=== PATIENT | female | born 1975 | race Caucasian/White ===

== ENCOUNTER 2018-12-01 11:45 | Emergency (ER) | payer BC ==
[2018-12-01] MEDS ORDERED: NA CHLORIDE 0.9% 1,000 ML ONE ×2 (13:50→14:06)
[2018-12-01 14:08] LABS: Urine Bacteria <20 /HPF (<20); Urine Culture Reflex Order NOT NEEDED; Urine RBC <5 /HPF (NONE SEEN)
[2018-12-01 14:13] LABS: Absolute Lymphocytes (CBC) 2.8 K/uL (0.7-4.9); Absolute Monocytes 0.5 K/uL (0.1-1.3); Absolute Neutrophil 3.8 K/uL (1.8-8.0); Basophils % 0.7 % (0-1.3); Eosinophils % 1.7 % (0-4.4); Hematocrit 43.7 % (36.0-45.0); Lymphocytes % 37.9 % (15.3-44.8); MPV 8.3 fL (7.6-11.3); Monocytes % 7.5 % (3.3-12.3); RBC Red Blood Cell Count 4.73 M/uL (3.86-4.86)
[2018-12-01 14:19] LABS: BUN Blood Urea Nitrogen 14 mg/dL (7-18); Bicarbonate 26 mmol/L (21-32); Glucose Level 87 mg/dL (74-106); Potassium 4.2 mmol/L (3.5-5.1); Sodium Level 140 mmol/L (136-145); Troponin (Emerg Dept Use Only) < 0.02 ng/mL (0.0-0.045)
--- NOTE | 2018-12-01 15:09 | RAD REPORT ---
EXAM DESCRIPTION: RAD - Chest Single View - 12/01/2018 2:35 pm CLINICAL HISTORY: CHEST PAIN Chest pain. COMPARISON: No comparisons FINDINGS: Portable technique limits examination quality. The lungs are grossly clear. The heart is normal in size. No displaced fractures. IMPRESSION: No acute intrathoracic process suspected.
--- NOTE | 2018-12-01 15:37 | EKG ---
Test Date: 2018-12-01 Test Time: 13:33:21 Load Builder: ANAI MEASUREMENT RESULTS: Intervals: Rate: 59 GA: 126 QRSD: 92 QT: 436 QTc: 431 [place]: P: 35 GA: 126 QRS: 15 T: 15 INTERPRETIVE STATEMENTS: Sinus bradycardia Otherwise normal ECG Compared to ECG 10/12/2016 15:35:01 Sinus rhythm no longer present Electronically Signed On 12-01-18 15:37:34 CDT by Carlos Headley
--- NOTE | 2018-12-01 16:05 | EDPHYS ---
Physician Documentation [facility] Name: Darshana Haddad Age: 43 yrs Sex: Female : 1975 Arrival Date: 12/01/2018 Time: 11:47 Bed 28 Private MD: Lesley Caraballo ED Physician Alfredo Estrada HPI: 12/01 13:26 This 43 yrs old Female presents to ER via Ambulatory with complaints of rn Headache, Neck Problem. 13:26 The patient complains of pain to the occiput. The patient describes the headache as rn aching. Onset: The symptoms/episode began/occurred 4 day(s) ago. Severity of symptoms: At its worst the pain was moderate, in the emergency department the pain is unchanged. Headache History: The patient has had previous headaches and this one is similar to previous episodes. The symptoms are alleviated by nothing. the symptoms are aggravated by nothing. The patient has experienced similar episodes in the past. Reports headache for 4-5 days, assoc with neck pain, fatigue, paresthesias that travel from extremity to extremity, no focal weakness but + generalized weakness. Also feels chest pain and sob that is intermittent. No cough/abd pain/vomiting/diarrhea. Called pcp who told her to come to ER for evaluation. . 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 - Family history:: not pertinent. - Social history:: Smoking status: Patient/guardian denies using tobacco. - Ebola Screening: : No symptoms or risks identified at this time. - Hospitalizations: : No recent hospitalization is reported. ROS: 13:26 Constitutional: Negative for fever, chills, and weight loss, Eyes: Negative for injury, rn pain, redness, and discharge, Neck: Negative for injury, pain, and swelling, Cardiovascular: Negative for palpitations Respiratory: Negative for cough, wheezing, and pleuritic chest pain, Abdomen/GI: Negative for abdominal pain, nausea, vomiting, diarrhea, and constipation, Back: Negative for injury and pain, MS/Extremity: Negative for injury and deformity, Skin: Negative for injury, rash, and discoloration, Neuro: Negative for seizure Exam: 13:29 Constitutional: This is a well developed, well nourished patient who is awake, alert, rn and in no acute distress. Head/Face: Normocephalic, atraumatic. Eyes: Pupils equal round and reactive to light, extra-ocular motions intact. Lids and lashes normal. Conjunctiva and sclera are non-icteric and not injected. Cornea within normal limits. Periorbital areas with no swelling, redness, or edema. ENT: dry MM and lips Respiratory: No increased work of breathing, no retractions or nasal flaring. Abdomen/GI: soft, non-tender Skin: Warm, dry MS/ Extremity: Pulses equal, no cyanosis. Neurovascular intact. Full, normal range of motion. Equal circumference. 1+ pitting edema bilateral lower ext and feet Neuro: Awake and alert, GCS 15, oriented to person, place, time, and situation. Cranial nerves II-XII grossly intact. Motor strength 5/5 in all extremities. Sensory grossly intact. Vital Signs: 12:28 BP 136 / 82; Pulse 79; Resp 18; Temp 98.1(O); Pulse Ox 99% ; Weight 117.93 kg; Height 5 rb1 ft. 8 in. (172.72 cm); Pain 7/10; 13:25 BP 107 / 72; Pulse 70; Resp 16 S; Pulse Ox 100% on R/A; ca1 14:02 BP 101 / 62; Pulse 59; Resp 17 S; Pulse Ox 96% on R/A; ca1 15:00 BP 103 / 65; Pulse 60; Resp 17 S; Temp 98(O); Pulse Ox 96% on R/A; ca1 15:43 BP 100 / 64; Pulse 59; Resp 17 S; Pulse Ox 99% on R/A; ca1 15:57 BP 103 / 59; Pulse 62; Resp 17 S; Temp 98.1; Pulse Ox 99% on R/A; ca1 12:28 Body Mass Index 39.53 (117.93 kg, 172.72 cm) rb1 Lesage Coma Score: 16:00 Eye Response: spontaneous(4). Verbal Response: oriented(5). Motor Response: obeys rn commands(6). Total: 15. MDM: 13:14 Patient medically screened. rn 16:00 Differential diagnosis: hypertensive headache, migraine, tension headache, vasomotor rn headache, MOno, flu, viral syndrome. Data reviewed: vital signs, nurses notes, lab test result(s), radiologic studies, plain films. Counseling: I had a detailed discussion with the patient and/or guardian regarding: the historical points, exam findings, and any diagnostic results supporting the discharge/admit diagnosis, lab results, radiology results, the need for outpatient follow up, to return to the emergency department if symptoms worsen or persist or if there are any questions or concerns that arise at home. Special discussion: I discussed with the patient/guardian in detail that at this point there is no indication for admission to the hospital. It is understood, however, that if the symptoms persist or worsen the patient needs to return immediately for re-evaluation. Based on the history and exam findings, there is no indication for further emergent testing or inpatient evaluation. I discussed with the patient/guardian the need to see the primary care provider for further evaluation of the symptoms. ED course: NO clear etiology found for constellation of symptoms. Will dc home with pcp f/u. . 12/01 13:26 Order name: CBC with Diff; Complete Time: 14:44 rn 12/01 13:26 Order name: Basic Metabolic Panel; Complete Time: 14:44 rn 12/01 13:26 Order name: Urine Microscopic Only; Complete Time: 14:44 rn 12/01 13:26 Order name: Troponin (emerg Dept Use Only); Complete Time: 14:44 rn 12/01 13:26 Order name: Flu; Complete Time: 14:44 rn 12/01 13:26 Order name: [place] Screen Profile; Complete Time: 16:00 rn 12/01 13:26 Order name: IV Start; Complete Time: 13:55 rn 12/01 13:26 Order name: Urine Test (obtain specimen); Complete Time: 13:30 rn 12/01 13:26 Order name: EKG; Complete Time: 13:26 rn 12/01 13:26 Order name: XRAY Chest (1 view); Complete Time: 16:00 rn 12/01 13:41 Order name: Urine Dipstick--Ancillary (enter results) bd 12/01 13:41 Order name: Urine --Ancillary (enter results) bd 12/01 13:26 Order name: Urine Dipstick-Ancillary (obtain specimen); Complete Time: 13:30 rn 12/01 13:26 Order name: EKG - Nurse/Tech; Complete Time: 13:39 rn Administered Medications: 13:50 Drug: NS 0.9% 1000 ml Route: IV; Rate: 1000 ml; Site: left antecubital; ca1 14:48 Follow up: Response: No adverse reaction; IV Status: Completed infusion ca1 Disposition: 12/01/18 16:04 Discharged to Home. Impression: Headache, Chest pain, unspecified, Paresthesia of skin. - Condition is Stable. - Discharge Instructions: Nonspecific Chest Pain, General Headache Without Cause, Paresthesia. - Medication Reconciliation Form, Thank You Letter, Antibiotic Education, Prescription Opioid Use form. - Follow up: Private Physician; When: As needed; Reason: Recheck today's complaints, Re-evaluation by your physician. - Problem is new. - Symptoms have improved. Signatures: Dispatcher [employer] EDMS Alfredo Estrada MD MD rn Barber, Rebecca, RN RN rb1 Elly Logan RN RN ca1 Corrections: (The following items were deleted from the chart) 16:16 16:04 12/01/2018 16:04 Discharged to Home. Impression: Headache; Chest pain, ca1 unspecified; Paresthesia of skin. Condition is Stable. Forms are Medication Reconciliation Form, Thank You Letter, Antibiotic Education, Prescription Opioid Use. Follow up: Private Physician; When: As needed; Reason: Recheck today's complaints, Re-evaluation by your physician. Problem is new. Symptoms have improved. rn
--- NOTE | 2018-12-01 16:05 | ER ---
Nurse's Notes [facility] Name: Darshana Haddad Age: 43 yrs Sex: Female : 1975 Arrival Date: 12/01/2018 Time: 11:47 Bed 28 Private MD: Lesley Caraballo Diagnosis: Headache;Chest pain, unspecified;Paresthesia of skin Presentation: 12/01 12:23 Presenting complaint: Patient states: fatigue x couple weeks, headache x couple days, rb1 pins and needles in hands and feet intermittent, SOB today, neck pain 7/10. Denies fever, NVD. Transition of care: patient was not received from another setting of care. Onset of symptoms was November 2018. Risk Assessment: Do you want to hurt yourself or someone else? Patient reports no desire to harm self or others. 12:23 Method Of Arrival: Ambulatory rb1 12:23 Acuity: ASIM 3 rb1 13:25 Initial Sepsis Screen: Does the patient meet any 2 criteria? No. Patient's initial ca1 sepsis screen is negative. Does the patient have a suspected source of infection? No. Patient's initial sepsis screen is negative. 13:25 Care prior to arrival: None. ca1 Triage Assessment: 12:26 Headache History: The patient has had previous headaches and this one is different than rb1 previous episodes. General: Appears in no apparent distress. uncomfortable, Behavior is calm, cooperative, Denies fever. Neuro: Level of Consciousness is awake, alert, obeys commands, Oriented to person, place, time, situation. Cardiovascular: Capillary refill < 3 seconds is brisk in bilateral fingers. Respiratory: Airway is patent Respiratory effort is even, unlabored, Respiratory pattern is regular, symmetrical. Derm: Skin is dry, Skin is normal, Skin temperature is warm. Musculoskeletal: Swelling present in right leg and left leg per pt. report. 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 - Family history:: not pertinent. - Social history:: Smoking status: Patient/guardian denies using tobacco. - Ebola Screening: : No symptoms or risks identified at this time. - Hospitalizations: : No recent hospitalization is reported. Screenin:25 Abuse screen: Denies threats or abuse. Denies injuries from another. Nutritional ca1 screening: No deficits noted. Tuberculosis screening: No symptoms or risk factors identified. Fall Risk None identified. Assessment: 13:25 General: Appears in no apparent distress. comfortable, Behavior is calm, cooperative, ca1 appropriate for age. Pain: Complains of pain in face and scalp Pain currently is 7 out of 10 on a pain scale. Pain began 2-3 days ago. Is continuous. Neuro: Level of Consciousness is awake, alert, obeys commands, Oriented to person, place, time, situation. Cardiovascular: Heart tones S1 S2 present Capillary refill < 3 seconds Patient's skin is warm and dry. Respiratory: Reports shortness of breath on exertion Airway is patent Respiratory effort is even, unlabored, Respiratory pattern is regular, symmetrical, Breath sounds are clear bilaterally. GI: Abdomen is round non-distended, Bowel sounds present X 4 quads. Abd is soft and non tender X 4 quads. : No deficits noted. No signs and/or symptoms were reported regarding the genitourinary system. EENT: No deficits noted. No signs and/or symptoms were reported regarding the EENT system. Derm: Skin is intact, is healthy with good turgor, Skin is pink, warm \T\ dry. Musculoskeletal: Circulation, motion, and sensation intact. Capillary refill < 3 seconds, Range of motion: intact in all extremities, Swelling present in right foot and left foot. 14:34 Reassessment: Patient appears in no apparent distress at this time. Eyes closed. Equal ca1 and unlabored breathing. Skin pink, warm and dry. 15:14 Reassessment: Patient appears in no apparent distress at this time. Patient and/or ca1 family updated on plan of care and expected duration. Pain level reassessed. Patient is alert, oriented x 3, equal unlabored respirations, skin warm/dry/pink. 15:57 Reassessment: Patient appears in no apparent distress at this time. Patient is alert, ca1 oriented x 3, equal unlabored respirations, skin warm/dry/pink. Vital Signs: 12:28 BP 136 / 82; Pulse 79; Resp 18; Temp 98.1(O); Pulse Ox 99% ; Weight 117.93 kg; Height 5 rb1 ft. 8 in. (172.72 cm); Pain 7/10; 13:25 BP 107 / 72; Pulse 70; Resp 16 S; Pulse Ox 100% on R/A; ca1 14:02 BP 101 / 62; Pulse 59; Resp 17 S; Pulse Ox 96% on R/A; ca1 15:00 BP 103 / 65; Pulse 60; Resp 17 S; Temp 98(O); Pulse Ox 96% on R/A; ca1 15:43 BP 100 / 64; Pulse 59; Resp 17 S; Pulse Ox 99% on R/A; ca1 15:57 BP 103 / 59; Pulse 62; Resp 17 S; Temp 98.1; Pulse Ox 99% on R/A; ca1 12:28 Body Mass Index 39.53 (117.93 kg, 172.72 cm) rb1 Melva Coma Score: 16:00 Eye Response: spontaneous(4). Verbal Response: oriented(5). Motor Response: obeys rn commands(6). Total: 15. ED Course: 11:47 Patient arrived in ED. mr 11:47 Lesley Caraballo MD is Private Physician. mr 12:25 Triage completed. rb1 12:28 Arm band placed on right wrist. rb1 13:14 Alfredo Estrada MD is Attending Physician. rn 13:22 Elly Logan RN is Primary Nurse. ca1 13:25 Patient has correct armband on for positive identification. Placed in gown. Bed in low ca1 position. Call light in reach. Side rails up X 1. Pulse ox on. NIBP on. Warm blanket given. 13:33 EKG done, by medical technician. reviewed by Alfredo Estrada MD. at1 13:47 Inserted saline lock: 20 gauge in left antecubital area, using aseptic technique. Blood ca1 collected. 14:35 XRAY Chest (1 view) In Process Unspecified. EDMS 16:10 No provider procedures requiring assistance completed. IV discontinued, intact, ca1 bleeding controlled, No redness/swelling at site. Pressure dressing applied. Administered Medications: 13:50 Drug: NS 0.9% 1000 ml Route: IV; Rate: 1000 ml; Site: left antecubital; ca1 14:48 Follow up: Response: No adverse reaction; IV Status: Completed infusion ca1 Outcome: 16:04 Discharge ordered by . rn 16:10 Discharged to home ambulatory, with significant other. ca1 16:10 Condition: stable 16:10 Discharge instructions given to patient, Instructed on discharge instructions, follow up and referral plans. Demonstrated understanding of instructions, follow-up care. 16:16 Patient left the ED. ca1 Signatures: Dispatcher [employer] NICOLÁSMichelle MiddletonAlfredo MD MD rn Elma Harding, burglar alarm mechanic EKG Tat1 Brenda Ng RN RN rb1 Elly Logan RN RN ca1 Corrections: (The following items were deleted from the chart) 13:04 12:28 BP 136 / ???; Pulse 79bpm; Resp 18bpm; Pulse Ox 99%; Temp 98.1F Oral; 117.93 kg; rb1 Height 5 ft. 8 in.; BMI: 39.5; Pain 7/10; rb1
[2018-12-01 16:31] LABS: Urine Blood 2+ (NEG); Urine Glucose NEGATIVE (NEG); Urine Protein NEGATIVE (NEG); Urine pH 5.5 (5.0-7.0)
== END 2018-12-01 16:16 | disposition home or self-care (01) ==
LOC: ER 11:45
DX: R51 Headache (principal); R07.9 Chest pain, unspecified; R20.2 Paresthesia of skin
CPT/HCPCS: 36415; 71045; 80048; 81003; 81015; 81025; 84484; 85025; 86308; 87804; 93005; 96360; 99284; J7030

== ENCOUNTER 2019-10-19 10:49 | Emergency (ER) | payer BC ==
[2019-10-19] MEDS ORDERED: METOCLOPRAMIDE 10 MG/2mL INJ ONE (11:24)
[2019-10-19] MEDS ORDERED: KETOROLAC 30 MG/ML INJ ONE (11:25)
[2019-10-19] MEDS ORDERED: NA CHLORIDE 0.9% 1,000 ML ONE (11:25)
[2019-10-19] MEDS ORDERED: DIPHENHYDRAMINE 50 MG/ML VIAL ONE (11:25)
[2019-10-19 12:51] LABS: Urine Blood 2+ (NEG); Urine Glucose NEGATIVE (NEG); Urine Protein NEGATIVE (NEG); Urine Specific Gravity 1.025 (1.005-1.030); Urine pH 5.5 (5.0-7.0)
--- NOTE | 2019-10-19 13:25 | RAD REPORT ---
EXAM DESCRIPTION: CT - Head Brain Wo Cont - 10/19/2019 1:12 pm CLINICAL HISTORY: HEADACHE Headache and drowsiness COMPARISON: No comparisons TECHNIQUE: All CT scans are performed using dose optimization technique as appropriate and may inclu de automated exposure control or mA/KV adjustment according to patient size. FINDINGS: No intracranial hemorrhage, hydrocephalus or extra-axial fluid collection.14 mm CSF densit y collection in the left middle cranial fossa may represent a benign arachnoid cyst.No areas of brain edema or evidence of midline shift. The paranasal sinuses and mastoids are clear. The calvarium is intact. IMPRESSION: No acute intracranial abnormality.
[2019-10-19] MEDS ORDERED: MORPHINE 4 MG/ML SYR ONE (13:59)
[2019-10-19] MEDS ORDERED: ONDANSETRON 4 MG/2 ML VIAL ONE (13:59)
--- NOTE | 2019-10-19 14:21 | ER ---
Nurse's Notes [facility] Name: Darshana Haddad Age: 44 yrs Sex: Female : 1975 Arrival Date: 10/19/2019 Time: 10:52 Bed 15 Private MD: Lesley Caraballo Diagnosis: Headache Presentation: 10/18 10:54 Chief complaint: Patient states: Tried to make a doctor appointment for a TURK x 1 week, jl7 hx of migraines, took sumatriptan this weekend on Saturday and it didn't help, reported mild subjective fever and Dr. Caraballo would not let her come in the office. Rashmi called her in a migraine medication and told her to take that and call her after she's sure she doesn't have a fever. Pt just picked up the called in medication and states her mom told her to come to the ER to get checked out. Denies N/V, denies shortness of breath, denies cough. Coronavirus screen: Patient denies fever greater than 100.4F, cough, shortness of breath, or difficulty breathing. Proceed with normal triage process. Ebola Screen: No symptoms or risks identified at this time. Initial Sepsis Screen: Does the patient meet any 2 criteria? No. Patient's initial sepsis screen is negative. Does the patient have a suspected source of infection? No. Patient's initial sepsis screen is negative. Risk Assessment: Do you want to hurt yourself or someone else? Patient reports no desire to harm self or others. Onset of symptoms was October 12, 2019. Care prior to arrival: None. 10:54 Method Of Arrival: Ambulatory [facility] 10:54 Acuity: ASIM 4 jl7 Triage Assessment: 11:03 Headache History: The patient has had previous headaches and this one is different than jl7 previous episodes, and this one is less severe than previous episodes. General: Appears in no apparent distress. uncomfortable, Behavior is calm, cooperative, appropriate for age. Pain: Complains of pain in TURK Pain currently is 7 out of 10 on a pain scale. Pain began x1 week Is continuous, Also complains of no other associated symptoms. Neuro: Level of Consciousness is awake, alert, obeys commands, Oriented to person, place, time, situation. 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 - Social history:: Smoking status: Patient reports the use of cigarette tobacco products, smokes one pack cigarettes per day. Patient/guardian denies using alcohol, street drugs, The patient lives with family. - Family history:: not pertinent. Screenin:00 Abuse screen: Denies threats or abuse. Denies injuries from another. Nutritional bp screening: No deficits noted. Tuberculosis screening: No symptoms or risk factors identified. Fall Risk None identified. Assessment: 11:00 General: SEE TRIAGE NOTE. Pain: Complains of pain in head. bp 11:31 Reassessment: IVF INFUSING, CT PENDING. PT STATING SOME RELIEF OF S/S. bp 13:07 Reassessment: PT TO CT. NO ACUTE S/S. bp 14:05 Reassessment: PT SLEEPING AFTER MEDICATION. NO ACUTE S/S NOTED. bp 14:39 Reassessment: PT D/C HOME AMBULATORY WITH FAMILY, DX WITH MIGRAINE. bp Vital Signs: 10:54 BP 137 / 91; Pulse 75; Resp 17 S; Temp 98.7(O); Pulse Ox 99% on R/A; Weight 113.4 kg 7 (R); Height 5 ft. 7 in. (170.18 cm) (R); Pain 7/10; 11:31 BP 128 / 87; Pulse 63; Resp 16; Pulse Ox 99% ; bp 13:07 BP 117 / 80; Pulse 52; Resp 16; Pulse Ox 99% ; bp 14:05 BP 95 / 58; Pulse 52; Resp 16; Pulse Ox 100% ; bp 14:39 BP 101 / 64; Pulse 56; Resp 17; Temp 98; Pulse Ox 100% ; bp 10:54 Body Mass Index 39.16 (113.40 kg, 170.18 cm) [facility] ED Course: 10:52 Patient arrived in ED. ag5 10:52 Lesley Caraballo MD is Private Physician. ag5 10:54 Marlon Neff MD is Attending Physician. ma2 11:00 Patient has correct armband on for positive identification. Bed in low position. Call bp light in reach. Side rails up X2. 11:01 Triage completed. jl7 11:03 Arm band placed on right wrist. jl7 11:11 Alessio Higgins, RN is Primary Nurse. bp 11:15 Inserted saline lock: 20 gauge in right wrist, using aseptic technique. bp 13:13 CT Head Brain wo Cont In Process Unspecified. EDMS 14:20 Jeff Ennis MD is Referral Physician. ma2 14:39 No provider procedures requiring assistance completed. IV discontinued, intact, bp bleeding controlled, No redness/swelling at site. Pressure dressing applied. Administered Medications: 11:20 Drug: NS 0.9% 1000 ml Route: IV; Rate: 1 bolus; Site: right wrist; bp 14:41 Follow up: IV Status: Completed infusion; IV Intake: 1000ml bp 11:20 Drug: Benadryl 25 mg Route: IVP; Site: right wrist; bp 13:49 Follow up: Response: No adverse reaction bp 11:20 Drug: Reglan 20 mg Route: IVP; Site: right wrist; bp 13:49 Follow up: Response: No adverse reaction bp 11:20 Drug: TORadol 30 mg Route: IVP; Site: right wrist; bp 13:49 Follow up: Response: No adverse reaction bp 13:50 Drug: morphine 4 mg Route: IVP; Site: right forearm; bp 14:41 Follow up: Response: Pain is decreased bp 13:50 Drug: Zofran (Ondansetron) 4 mg Route: IVP; Site: right forearm; bp 14:41 Follow up: Response: Nausea is decreased bp Intake: 14:41 IV: 1000ml; Total: 1000ml. bp Outcome: 14:20 Discharge ordered by . ma2 14:39 Discharged to home ambulatory, with family. bp 14:39 Condition: stable 14:39 Discharge instructions given to patient, Instructed on discharge instructions, follow up and referral plans. medication usage, Demonstrated understanding of instructions, follow-up care, medications, Prescriptions given X 1. 14:42 Patient left the ED. bp Signatures: Dispatcher [employer] EDMS Xochitl Eason RN RN jl7 Peltier, Brian, RN RN bp Alzahri, Mohammad, MD MD ma2 Dory, Ajare ag5
--- NOTE | 2019-10-19 14:22 | EDPHYS ---
Physician Documentation [facility] Name: Darshana Haddad Age: 44 yrs Sex: Female : 1975 Arrival Date: 10/19/2019 Time: 10:52 Bed 15 Private MD: Lesley Caraballo ED Physician Marlon Neff HPI: 10/18 13:12 This 44 yrs old Female presents to ER via Ambulatory with complaints of ma2 Headache, Fever. 13:12 The patient complains of pain to the forehead. The patient describes the headache as ma2 constant. Onset: The symptoms/episode began/occurred suddenly, 2 day(s) ago. Onset: The symptoms/episode began/occurred suddenly, gradually, 2 day(s) ago. Associated signs and symptoms: Pertinent negatives: dizziness, fever, neck stiffness, paresthesias, vision loss, vomiting. Severity of symptoms: At its worst the pain was mild, in the emergency department the pain is unchanged. The patient has not experienced similar symptoms in the past. [employer]: 11:03 LMP 09/20/2019 jl7 Historical: - Allergies: 11:03 No Known Allergies; jl7 - Home Meds: 11:03 sumatriptan oral oral [Active]; jl7 - PMHx: 11:03 varicose veins; Migraines; jl7 - PSHx: 11:03 Cholecystectomy; varicose veins removed; jl7 - Immunization history:: Adult Immunizations not up to date. - Social history:: Smoking status: Patient reports the use of cigarette tobacco products, smokes one pack cigarettes per day. Patient/guardian denies using alcohol, street drugs, The patient lives with family. - Family history:: not pertinent. ROS: 13:12 Constitutional: Negative for fever, chills, and weight loss. ma2 13:12 All other systems are negative. Exam: 13:12 Constitutional: This is a well developed, well nourished patient who is awake, alert, ma2 and in no acute distress. Head/Face: Normocephalic, atraumatic. Eyes: Pupils equal round and reactive to light, extra-ocular motions intact. Lids and lashes normal. Conjunctiva and sclera are non-icteric and not injected. Cornea within normal limits. Periorbital areas with no swelling, redness, or edema. ENT: Nares patent. No nasal discharge, no septal abnormalities noted. Tympanic membranes are normal and external auditory canals are clear. Oropharynx with no redness, swelling, or masses, exudates, or evidence of obstruction, uvula midline. Mucous membranes moist. Neck: Trachea midline, no thyromegaly or masses palpated, and no cervical lymphadenopathy. Supple, full range of motion without nuchal rigidity, or vertebral point tenderness. No Meningismus. Chest/axilla: Normal chest wall appearance and motion. Nontender with no deformity. No lesions are appreciated. Cardiovascular: Regular rate and rhythm with a normal S1 and S2. No gallops, murmurs, or rubs. Normal PMI, no JVD. No pulse deficits. Respiratory: Lungs have equal breath sounds bilaterally, clear to auscultation and percussion. No rales, rhonchi or wheezes noted. No increased work of breathing, no retractions or nasal flaring. Abdomen/GI: Soft, non-tender, with normal bowel sounds. No distension or tympany. No guarding or rebound. No evidence of tenderness throughout. MS/ Extremity: Pulses equal, no cyanosis. Neurovascular intact. Full, normal range of motion. Neuro: Awake and alert, GCS 15, oriented to person, place, time, and situation. Cranial nerves II-XII grossly intact. Motor strength 5/5 in all extremities. Sensory grossly intact. Cerebellar exam normal. Normal gait. Vital Signs: 10:54 BP 137 / 91; Pulse 75; Resp 17 S; Temp 98.7(O); Pulse Ox 99% on R/A; Weight 113.[address] [facility] (R); Height 5 ft. 7 in. (170.18 cm) (R); Pain 7/10; 11:31 BP 128 / 87; Pulse 63; Resp 16; Pulse Ox 99% ; bp 13:07 BP 117 / 80; Pulse 52; Resp 16; Pulse Ox 99% ; bp 14:05 BP 95 / 58; Pulse 52; Resp 16; Pulse Ox 100% ; bp 14:39 BP 101 / 64; Pulse 56; Resp 17; Temp 98; Pulse Ox 100% ; bp 10:54 Body Mass Index 39.16 (113.40 kg, 170.18 cm) [facility] MDM: 10:54 Patient medically screened. ma2 13:12 Differential diagnosis: hypoglycemia, hyponatremia, tension headache. Data reviewed: ma2 vital signs, nurses notes. Counseling: I had a detailed discussion with the patient and/or guardian regarding: the historical points, exam findings, and any diagnostic results supporting the discharge/admit diagnosis, the presence of at least one elevated blood pressure reading (>120/80) during this emergency department visit, the need for outpatient follow up. Response to treatment: the patient's symptoms have markedly improved after treatment. 10/18 11:50 Order name: Urine Dipstick--Ancillary (enter results); Complete Time: 13:12 bd 10/18 11:50 Order name: Urine --Ancillary (enter results); Complete Time: 13:12 bd 10/18 11:13 Order name: CT Head Brain wo Cont; Complete Time: 13:33 ma2 10/18 11:13 Order name: Urine Dipstick-Ancillary (obtain specimen); Complete Time: 11:21 ma2 Administered Medications: 11:20 Drug: NS 0.9% 1000 ml Route: IV; Rate: 1 bolus; Site: right wrist; bp 14:41 Follow up: IV Status: Completed infusion; IV Intake: 1000ml bp 11:20 Drug: Benadryl 25 mg Route: IVP; Site: right wrist; bp 13:49 Follow up: Response: No adverse reaction bp 11:20 Drug: Reglan 20 mg Route: IVP; Site: right wrist; bp 13:49 Follow up: Response: No adverse reaction bp 11:20 Drug: TORadol 30 mg Route: IVP; Site: right wrist; bp 13:49 Follow up: Response: No adverse reaction bp 13:50 Drug: morphine 4 mg Route: IVP; Site: right forearm; bp 14:41 Follow up: Response: Pain is decreased bp 13:50 Drug: Zofran (Ondansetron) 4 mg Route: IVP; Site: right forearm; bp 14:41 Follow up: Response: Nausea is decreased bp Disposition: 10/19/19 14:20 Discharged to Home. Impression: Headache. - Condition is Stable. - Discharge Instructions: Migraine Headache. - Prescriptions for Reglan 10 mg Oral Tablet - take 1 tablet by ORAL route every 6 hours take 30 minutes before meals and at bedtime; 20 tablet. - Work release form, Medication Reconciliation Form, Thank You Letter, Antibiotic Education, Prescription Opioid Use form. - Follow up: Jeff Ennis; When: Tomorrow; Reason: Continuance of care. Signatures: Dispatcher [employer] Xochitl Baptiste RN RN jl7 Alessio Higgins RN RN bp Marlon Neff MD MD ma2 Corrections: (The following items were deleted from the chart) 14:42 14:20 10/19/2019 14:20 Discharged to Home. Impression: Headache. Condition is Stable. bp Prescriptions for Reglan 10 mg Oral Tablet - take 1 tablet by ORAL route every 6 hours take 30 minutes before meals and at bedtime; 20 tablet. and Forms are Medication Reconciliation Form, Thank You Letter, Antibiotic Education, Prescription Opioid Use. Follow up: Jeff Ennis; When: Tomorrow; Reason: Continuance of care. ma2
[2019-10-19 15:35] VITALS: O2SAT 100
[2019-10-19 15:37] VITALS: BP 101/64; TEMP 98
== END 2019-10-19 14:42 | disposition home or self-care (01) ==
LOC: ER 10:49
DX: R51 Headache (principal); F17.210 Nicotine dependence, cigarettes, uncomplicated
CPT/HCPCS: 96361; 81025; 81003; 70450; 96375; 96374; 99284; J2765; J1200; J7030; J2405

== ENCOUNTER 2023-03-22 08:13 | Emergency (ER) | payer BC ==
--- OUTSIDE RECORDS SUMMARY | 2023-03-22 08:17 | XMS REPORT | Continuity of Care Document ---
:1975 Author Organization [facility] t Address [address] [facility] [address] [place] [id number] Care Team Providers Name Role Phone Moy Wren Attending Clinician Unavailable Alena Merida Attending Clinician Unavailable JOSE JUAN Attending Clinician Unavailable LAB90 Attending Clinician Unavailable Physician, No Primary or Family Admitting Clinician Unavaila ble Payers Payer Name Policy Type Policy Number Effective Date Expiration Date S freddy BCBS 2 [id number] 2022 00:00:00 Blue Cross 6 [id number] 2015 Common Spiri t Blue Shield of 00:00:00 - [facility] Problems Condition Condition Condition Status Onset Resolution Last Treating Co mments Source Name Details Category Date Date Treatment Clinician Date Well adult Well adult Disease Active K elsey exam exam - Seybold 00:00: - 00 Externa l Vitamin D Vitamin D Disease Active Girish sey deficiency deficiency 9- Se ybold 00:00: - 00 Externa l Class 3 Class 3 Disease Active Natalya severe severe 9-20 Seybold obesity obesity 00:00: - due to due to 00 Externa excess excess l calories calories without without serious serious comorbidit comorbidit y with y with body mass body mass index index (BMI) of (BMI) of 50.0 to 50.0 to 59.9 in 59.9 in adult adult Hirsutism Hirsutism Disease Active Girish sey - Seybold 00:00: - 00 Externa l Mixed Mixed Disease Active Natalya hyperlipid hyperlipid 02-06 Se ybold emia emia 00:00: - 00 Externa l PCOS PCOS Disease Active Natalya (polycysti (polycysti 02-06 Se ybold c ovarian c ovarian 00:00: - syndrome) syndrome) 00 Exte rna l Prediabete Prediabete Disease Active K elsey s s 02-06 Seybold 00:00: - 00 Externa l Gastro-eso Gastro-eso Problem Active C ommon phageal phageal Spirit reflux reflux - [facility] disease disease [facility] FH: Family Problem Active Common Diabetes history of Spir it mellitus diabetes - [facility] mellitus [facility] [id number] Hyperglyce Problem Active Com mon bro Spirit [facility] Edema Edema Problem Active Common [facility] [id number] Nonintract Problem Active Com mon able Spirit headache, - [facility] unspecifie [facility] chronicity Medica l [facility], Center unspecifie d headache type [id number] Body mass Problem Active Com mon index Spirit (BMI) of - CHI 45.0-49.9 St in adult [facility] [id number] Hyperlipid Problem Active Com mon emia, Spirit unspecifie - CHI d St hyperlipid [facility] emia [facility] [id number] Rash and Problem Active Comm on nonspecifi Spirit c skin - [facility] eruption [facility] [id number] Itching Problem Active Commo n [facility] [id number] Morbid Problem Active Common obesity [facility] [id number] Throat Problem Active Common symptom [facility] [id number] Peripheral Problem Active Co mmon edema [facility] [id number] Bilateral Problem Active Comm on hearing Spirit loss, - [facility] unspecifie [facility] hearing [facility] loss [facility] [id number] Elevated Problem Active Comm on testostero Spirit ne level - [facility] in female [facility] [id number] Chest Problem Active Common pressure Spirit - [facility] [id number] Shortness Problem Active Com mon of breath Spirit - [facility] Nonintract Nonintract Problem Active C ommon able able Spirit headache, headache, - CH I unspecifie unspecifie [facility] chronicity chronicity Me dical pattern, pattern, Center unspecifie unspecifie d headache d headache type type Allergies, Adverse Reactions, Alerts Allergy Allergy Status Severity Reaction(s) Onset Inactive Treating Comm ents Source Name Type Date Date Clinician No Known DA Active U [facility]ie -12 [place] [facility] 00:00: [facility] No Known DA Active U [facility] Allergie - [place] [facility] 00:: [facility] No Known DA Active U 2019- [facility] Drug 2-10 [place] Allergie 00:00: d [facility] No Known DA Active U 2019- [facility] Drug 2-10 [place] Allergie 00:00: [facility] No Known DA Active U 2004-0 [facility] Contrast 8-26 [place] Allergie 00:00: [facility] No Known DA Active U 2004-0 [facility] Drug 8-26 [place] Allergie 00:00: d [facility] No Known DA Active U 2004-0 [facility] Food 8-26 [place] Allergie 00:00: d [facility] No Known DA Active U 2005-0 [facility] Other 8-26 [place] Allergie 00:00: d [facility] Social History Social Habit Start Date Stop Date Quantity Comments Source History of Tobacco Current Smoker Co mmon Spirit - Use [facility] History SDOH Natalya valdes - Alcohol Frequency Externa l History SDOH Natalya valdes - Alcohol Std 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 History SDOH Natalya valdes - Alcohol Binge External Alcohol intake 2022-08-08 2022-08-08 Current drinker Kaitlin Cho - 00:00:00 00:00:00 of alcohol External (finding) Education 2022-04-10 2022-04-10 16 Natalya Cho - 00:00:00 00:00:00 External Tobacco use and 2022-02-06 2022-02-06 Smokeless tobacco Ke lsey Seybold - exposure 00:00:00 00:00:00 non-user External Alcohol Comment 2022-02-06 2022-02-06 rarely Natalya see - 00:00:00 00:00:00 External Cigarettes smoked 2022-02-06 2022-02-06 Natalya Cho - current (pack per 00:00:00 00:00:00 Externa l day) - Reported Cigarette 2022-02-06 2022-02-06 Natalya Cho - pack-years 00:00:00 00:00:00 External Sex Ass[birth year] At [birth year] Natalya see - 00:00:00 00:00:00 External Smoking Status Start Date Stop Date Source Smokes tobacco daily 2022-02-06 00:00:00 Natalyasergio Cho - External Medications Ordered Filled Start Stop Current Ordering Indication Dosage Frequency Signature Comments Components Source Medication Medication Date Date Medication? Clinician (SIG) Name Name Spironolact Yes 25mg Take 25 mg Natalya one 25 MG 1-18 by mouth Seybol d oral Tablet 11:18: daily - 46 Externa l Sennosides Yes 1{capsu Take 1 Ke lsey (Senna) 8.6 1-18 le} capsule by Se ybold MG oral 11:18: mouth - Capsule 46 every Externa other day l Cholecalcif Yes 1000U Take 1,000 Natalya emmanuelle 1-18 units by Seybold (D3-1000) 11:18: mouth - 25 MCG 46 daily Externa (1000 UT) l oral Capsule Metformin Yes TAKE 1 Natalya HCl 500 MG 1-04 TABLET Seybold oral Tablet 00:00: (500 MG - 00 TOTAL) BY Externa MOUTH IN l THE MORNING AND 1 TABLET IN THE EVENING WITH MEALS Atorvastati Yes [id number] 10mg Take 1 Natalya n Calcium 9-21 tablet (10 Seyb old (Lipitor) 00:00: mg total) - 10 MG oral 00 by mouth Exter na Tablet daily l Pravastatin Pravastatin No 1{table QD Pravastati Sodium 20 Sodium 20 t} n Sodium mg mg 20 mg Advil Advil No Advil Fenofibrate Fenofibrate No 1{table Fenofibrat 48 MG 48 MG t} e 48 MG metFORMIN metFORMIN No metFORMIN HCl 500 MG HCl 500 MG HCl 500 MG Spironolact Spironolact No QD Spironolac one 25 MG one 25 MG tone 25 MG Senna Senna No Senna Amerge 2.5 Amerge 2.5 No Amerge 2.5 MG MG MG Ketoconazol Ketoconazol No 1{appli QD Ketoconazo e 2 % e 2 % cation_ le 2 % to_affe cted_ar ea} metFORMIN metFORMIN No 1{table BID metFORMIN HCl 500 MG HCl 500 MG t_with_ HCl 500 MG a_meal} Vitamin D Vitamin D No Vitamin D Spironolact Spironolact No QD Spironolac one 25 MG one 25 MG tone 25 MG Ketoconazol Ketoconazol No 1{appli QD Ketoconazo e 2 % e 2 % cation_ le 2 % to_affe cted_ar ea} Spironolact Spironolact No Spironolac one 25 MG one 25 MG tone 25 MG Advil Advil No Advil Amerge 2.5 Amerge 2.5 No Amerge 2.5 MG MG MG Senna Senna No Senna metFORMIN metFORMIN No metFORMIN HCl 500 MG HCl 500 MG HCl 500 MG metFORMIN metFORMIN No 1{table BID metFORMIN HCl 500 MG HCl 500 MG t_with_ HCl 500 MG a_meal} Pravastatin Pravastatin No 1{table Pravastati Sodium 40 Sodium 40 t} n Sodium MG MG 40 MG Fenofibrate Fenofibrate No 1{table Fenofibrat 48 MG 48 MG t} e 48 MG Pravastatin Pravastatin No 1{table QD Pravastati Sodium 20 Sodium 20 t} n Sodium mg mg 20 mg Vitamin D Vitamin D No Vitamin D Spironolact Spironolact No QD Spironolac one 25 MG one 25 MG tone 25 MG Pravastatin Pravastatin No 1{table Pravastati Sodium 40 Sodium 40 t} n Sodium MG MG 40 MG Vitamin D Vitamin D No Vitamin D Ketoconazol Ketoconazol No 1{appli QD Ketoconazo e 2 % e 2 % cation_ le 2 % to_affe cted_ar ea} Fenofibrate Fenofibrate No 1{table Fenofibrat 48 MG 48 MG t} e 48 MG Pravastatin Pravastatin No 1{table QD Pravastati Sodium 20 Sodium 20 t} n Sodium mg mg 20 mg Spironolact Spironolact No QD Spironolac one 25 MG one 25 MG tone 25 MG Senna Senna No Senna Advil Advil No Advil metFORMIN metFORMIN No 1{table BID metFORMIN HCl 500 MG HCl 500 MG t_with_ HCl 500 MG a_meal} Amerge 2.5 Amerge 2.5 No Amerge 2.5 MG MG MG metFORMIN metFORMIN No 1{table BID metFORMIN HCl 500 MG HCl 500 MG t_with_ HCl 500 MG a_meal} Fenofibrate Fenofibrate No 1{table Fenofibrat 48 MG 48 MG t} e 48 MG Ketoconazol Ketoconazol No 1{appli QD Ketoconazo e 2 % e 2 % cation_ le 2 % to_affe cted_ar ea} Advil Advil No Advil Amerge 2.5 Amerge 2.5 No Amerge 2.5 MG MG MG Pravastatin Pravastatin No 1{table QD Pravastati Sodium 20 Sodium 20 t} n Sodium mg mg 20 mg Pravastatin Pravastatin No 1{table Pravastati Sodium 40 Sodium 40 t} n Sodium MG MG 40 MG Spironolact Spironolact No QD Spironolac one 25 MG one 25 MG tone 25 MG Vitamin D Vitamin D No Vitamin D Senna Senna No Senna Vital Signs Vital Name Observation Time Observation Value Comments Source Systolic blood 2022-08-08 17:13:00 122 mm[Hg] Natalya Collinsold - pressure External Diastolic blood 2022-08-08 17:13:00 82 mm[Hg] Kaitlin guzman Seybold - pressure External Heart rate 2022-08-08 17:13:00 76 /min Natalya serra - External Body temperature 2022-08-08 17:13:00 36.28 Irene Arlin ey Seybold - External Respiratory rate 2022-08-08 17:13:00 15 /min Arlin ey ybold - External Body height 2022-08-08 17:13:00 170.2 cm Natalya serra - External Body weight 2022-08-08 17:13:00 153.316 kg Natalya paredesbold - External BMI 2022-08-08 17:13:00 52.94 kg/m2 Natalya paredesbolucio - External height 2021-11-15 16:30:00 67.50 [in_i] Common [facility] weight 2021-11-15 16:30:00 311.4 [lb_av] Common [facility] temperature 2021-11-15 16:30:00 97.9 [degF] Common [facility] bmi 2021-11-15 16:30:00 48.05 kg/m2 [facility] oximetry 2021-11-15 16:30:00 98 % Common [facility] respiratory rate 2021-11-15 16:30:00 18 /min Comm on [facility] blood pressure 2021-11-15 16:30:00 138 mm[Hg] Common [facility] - systolic [facility] blood pressure 2021-11-15 16:30:00 76 mm[Hg] Common [facility] - diastolic [facility] height 2021-08-02 16:40:00 67.50 [in_i] [facility] weight 2021-08-02 16:40:00 300 [lb_av] Common [facility] temperature 2021-08-02 16:40:00 98 [degF] [facility] bmi 2021-08-02 16:40:00 46.29 kg/m2 [facility] height 2021-05-02 11:00:00 67.50 [in_i] Common [facility] weight 2021-05-02 11:00:00 300 [lb_av] Common [facility] temperature 2021-05-02 11:00:00 97.5 [degF] Common [facility] bmi 2021-05-02 11:00:00 46.29 kg/m2 [facility] blood pressure 2021-05-02 11:00:00 125 mm[Hg] Common [facility] - systolic [facility] blood pressure 2021-05-02 11:00:00 74 mm[Hg] Common [facility] Procedures This patient has no known procedures. Encounters Start End Encounter Admission Attending Care Care Encounter Source Date/Time Date/Time Type Type Clinicians Facility Department ID 2021-11-16 Outpatient Wren, STLMLC [facility] [id number] Common 07:54:02 Moy [facility] 2021-08-16 Outpatient Wren, STLMLC [facility] [id number] Common 14:00:39 Moy 70163 [facility] 2021-08-16 Outpatient Wren, STLMLC [facility] [id number] Common 13:59:55 Moy 28897 [facility] 2021-08-16 Outpatient Wren, STLMLC ST[facility] [id number] Common 13:23:54 Moy 22573 [facility] 2021-08-16 Outpatient Wren, STLMLC ST[facility] [id number] Common 13:22:43 Moy 69869 [facility] 2021-08-16 Outpatient Wren, STLMLC ST[facility] [id number] Common 13:08:25 Moy 32671 [facility] 2021-08-16 Outpatient Wren, STLMLC ST[facility] [id number] Common 12:58:52 Moy 53860 [facility] 2021-08-16 Outpatient Wren, STLMLC [facility] [id number] Common 12:57:19 Moy 13602 [facility] 2020-08-02 Inpatient EL Magnolia, HCAPM SANCHEZ [id number] [facility] 15:00:00 [facility] 53 [facility] 2020-06-30 Inpatient Kachristianyala, HCAPM SANCHEZ [id number] [facility] 13:45:00 [facility] 26 [facility] 2023-02-23 2023-02-23 Outpatient NATALYA JUAN [id number] Natalya 00:00:00 00:00:00 JOSE Collinsol nghia 2023-02-14 2023-02-14 Outpatient NATALYA JUAN [id number] Natalya 08:30:00 08:30:00 JOSE Seybol d 2023-02-07 2023-02-07 Outpatient PREZAS, NATALYA TRACEY [id number] Natalya 08:00:00 08:00:00 JOSE Seybol d 2023-02-05 2023-02-05 Outpatient PREZAS, NATALYA TRACEY [id number] Natalya 08:00:00 08:00:00 JOSE Seybol d 2023-01-16 2023-01-16 Outpatient PREZAS, NATALYA TRACEY [id number] Natalya 00:00:00 00:00:00 JOSE Seybol d 2022-11-24 2022-11-24 Outpatient PREZAS, NATALYA TRACEY [id number] Natalya 00:00:00 00:00:00 JOSE Seybol d 2022-10-08 2022-10-08 Outpatient PREZAS, NATALYA TRACEY [id number] Natalya 08:30:00 08:30:00 JOSE Seybol d 2022-08-28 2022-08-28 Outpatient PREZAS, NATALYA TRACEY [id number] Natalya 00:00:00 00:00:00 JOSE Seybol d 2022-08-09 2022-08-09 Outpatient PREZAS, NATALYA TRACEY [id number] Natalya 00:00:00 00:00:00 JOSE Seybol d 2022-08-08 2022-08-08 Outpatient LAB90 NATALYA TRACEY [id number] Natalya 12:00:00 12:00:00 Seybol d 2022-08-08 2022-08-08 Outpatient PREZAS, NATALYA TRACEY [id number] Natalya 11:30:00 11:30:00 JOSE Seybol d 2022-07-25 2022-07-25 Outpatient PREZAS, NATALYA TRACEY [id number] Natalya 00:00:00 00:00:00 JOSE Seybol d 2022-07-13 2022-07-13 Outpatient PREZAS, NATALYA TRACEY [id number] Natalya 08:00:00 08:00:00 JOSE Seybol d 2022-06-28 2022-06-28 Outpatient PREZAS, NATALYA TRACEY [id number] Natalya 00:00:00 00:00:00 JOSE Seybol d 2022-06-20 2022-06-20 Outpatient PREZAS, NATALYA TRACEY [id number] Natalya 00:00:00 00:00:00 JOSE Seybol d 2022-04-13 2022-04-13 Outpatient PREZAS, NATALYA TRACEY [id number] Natalya 00:00:00 00:00:00 JOSE Seybol d 2022-04-11 2022-04-11 Outpatient PREZAS, NATALYA TRACEY [id number] Natalya 00:00:00 00:00:00 JOSE Seybol d 2022-04-11 2022-04-11 Outpatient PREZAS, NATALYA TRACEY [id number] Natalya 00:00:00 00:00:00 JOSE Seybol d 2022-04-10 2022-04-10 Outpatient LAB90 NATALYA TRACEY [id number] Natalya 10:00:00 10:00:00 Seybol d 2022-04-10 2022-04-10 Outpatient PREZAS, NATALYA TRACEY [id number] Natalya 09:15:00 09:15:00 JOSE Seybol d 2022-02-06 2022-02-06 [facility] Jose JUAN [id number] Natalya 10:30:00 10:30:00 ne JOSE Carlos [id number] Se mayi [id number] 2022-02-05 2022-02-05 Outpatient PREZAS, NATALYA TRACEY [id number] Natalya 00:00:00 00:00:00 JOSE Seybol d 2022-02-05 2022-02-05 Outpatient PREZASNATALYA [id number] Natalya 00:00:00 00:00:00 JOSE Seybol d 2022-02-02 2022-02-02 (TEL) [facility] [id number] Co mmon 00:00:00 00:00:00 [facility] 2021-11-15 2021-11-15 PREV VISIT [facility] [id number] Common 00:00:00 00:00:00 EST AGE Spirit 40-64 - [facility] 2021-08-02 2021-08-02 OFFICE STLMLC STLMLC [id number] Co mmon 00:00:00 00:00:00 VISIT EST Spir it PT LEVEL 3 - [facility] 2021-05-02 2021-05-02 OFFICE STLMLC STLMLC [id number] Co mmon 00:00:00 00:00:00 VISIT EST Spir it PT LEVEL 3 - [facility] 2021-01-25 2021-01-25 Outpatient STLMLC STLMLC [id number] Common 00:00:00 00:00:00 [facility] 2020-12-15 2020-12-15 Outpatient STLMLC STLMLC [id number] Common 00:00:00 00:00:00 [facility] 2020-11-16 2020-11-16 Outpatient STLMLC STLMLC [id number] Common 00:00:00 00:00:00 [facility] Results Test Description Test Time Test Comments Results Result Comments Source SURG 2020-08-09 15:29:00 Test Item Value Reference Range Interpretation [place] SURG RUN DATE: (test 08/09/20 [facility] Ger CovarrubiasRunivermag d - LAB PAGE 1 RUN TIME: 1529 Specimen Inquiry RUN USER: INTERFACE code = PATIENT: SURGGARY CASTILLO #: [id number] LOC: JANES U #: [id number] AGE/SX: 45/F ROOM: RE08/04/20[facility] DR: Alena Merida : 79 BED: DIS: STATUS : [facility] TLOC: SPEC #: [id number] RECD: 08/05/20- 345 STATUS: KARL REJimmy #: [id number] JANAE: 08/04/201344 [facility] DR: Alena Merida MD ENTERED: 08/05/20 SP TYPE: SURG OTHR DR: No Primary or Family PhysicianORDERED: SURG PATH LVL 5 COPIES TO: No Primary or Family Physician Alena Merida MD [address] [place] [address] HISTOLOGY: TISSUE ID BLK PCS SHILOH LEV PROCEDURE DISPOSITION ____ ___ ___ ___ UTERUS, NOS A 1 1 PROCEDURES: SURG PATH LV L 5 (08/05/20) TISSUES: A. 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 R eceived in formalin is a 124.1- gram hysterectomy and bilateral salpingectomy specimen inclu ding a uterus with attached cervix (8.5 x 6.5 x 4.0 cm, 111.8 grams) a segment of right fallopian tube with fimbriated end (4.5 x 1.9 x 1.6 cm), a short proximal segment of left CONTINUED ON NEXT PAGE RUN DATE: 08/09/20 [facility] Ger Leroy Luv Rink - LAB PAGE 2 RUN TIME: 1529 Specimen Inquiry RUN USER: INTERFACE SPEC #: [id number] PATIENT: GARY CROOKS #[id number] (Continued) GROSS DESCRIPTION (Continue d) fallopian tube (2.8 x 0.7 x 0.6 cm) and distal segment of left fallopian tube with fimbriated end (3. 5 x 1.8 x 1.5 cm). The serosal surface is tyson-brown smooth and glistening. The cervix measures 3.0 x 2. 7 x 2.2 cm (depth) with an ovoid os. 0.7 cm. The endometrial cavity measures 3.2 cm from cornu to cornu x 3.8 cm in length with a hemorrhagic endometrium, 0.2 cm. The myometrium is maximally 2.0 cm in thicknes s and contains a small intramural nodule 0.4 x 0.4 x 0.3 cm. The nodule has a homogenous tyson cut surface without hemorrhage or necrosis. The myometrium likewise contains areas with small spaces with hemorrhagi c fluid. The right fallopian tube is slightly tortuous, with a patent lumen and is grossly unremarkable except for two small paratubal cysts, 0.1 and 0.2 cm in greatest dimension. The short proximal segment o f left fallopian tube is slightly tortuous, with a patent lumen. The distal segment of left fallopian tu be has an adjacent thin-walled paratubal cyst, 2.2 x 1.5 x 1.0 cm. ba/nr Security Professional sections subm itted as follows: A1 Anterior cervix A2 Posterior cervix A3-A4 Anterior endometrium/myometrium A5-A6 Posterior endometrium/myometrium A7 Intramural nodule A8 Serosa (Posterior cul-de-sac) A9-A10 Entire fi mbriated end of right fallopian tube A11 Right fallopian tube and small paratubal cysts A12-A13 Fimb riated end of left fallopian tube A14 Fimbriated end of left fallopian tube and paratubal cyst A15 Left fallopian tube A16-A21 Remainder of the endometrium Grossing performed at [facility] Pathology, [address] [place] [address], [address], [place], [place] [address]. Movie Producer: Wilfredo Bello M.D. MICROSCOPIC D ESCRIPTION Cervix, uterus, bilateral fallopian tubes. Sections demonstrate squamous ectocervix and glan dular endocervix. Mild chronic cervicitis and nabothian cysts are identified. Sections of endo metrium demonstrate proliferative base kept in mind unremarkable spindle cells. Occasional spindle ce ll nodules with no evidence of increased mitotic activity or malignant features are seen. Portions of the serosal surface demonstrate no evidence of endometriosis. Portions of fallopian tube demonstrate u nremarkable fallopian tube with associated paratubal cyst. CONTINUED ON NEXT PAGE RUN DATE: 08/09/20 [facility]AH [facility] [employer] - LAB PAGE 3 RUN TIME: 152 Specimen Inquiry RUN USER: INTERFACE SPEC #: [id number] PATIENT: GARY CROOKS #[id number] (Continued) Signed SIGNATURE ON FILE Manuel Cheney Kate 08/09/20 1529 END OF REPORT [id number] 13:21:00 Test Item Value Reference Range Interpretation Comments CYTOLOGY (test code = CYTO) RUN DATE: 08/09/20 [facility] PAGE 1 RUN TIME: 1321 Specimen Inquiry RUN USER: INTERFACE PATIENT: GARY CROOKS LOC: DASIAU U #: [id number] AGE/SX: 45/F ROOM: RE08/04/20[facility] DR: Alena Merida : 79 BED: DIS: STATUS: DEP RADHAC TLOC: SPEC #: [id number] RECD: 08/05/20 STATUS: KARL ZAVALA #: [id number] JANAE: 08/04/[address]: Alena Merida MD ENTERED: 08/05/20 SP TYPE: CYTOLOGY OTHR DR: No Primary or Family PhysicianORDERED: CB, SUREPATH COPIES TO: No Primary or Family Physician Alena Merida MD [address] [place] [address] HISTOLOGY: TISSUE ID BLK PCS SHILOH LEV PROCEDURE DISPOSITION ____ ___ ___ ___ PELVIS, NOS A 1 2 PROCEDURES: CB (08/05/20) SUREPATH (08/05/20) TISSUES: A. PELVIS, NOS - PELVIC WASHING CPT CODES CPT CODE(S): 70416 , 02770 , , , , , FINAL DIAGNOSIS Pelvic washing: ACELLULAR SPECIMEN NONDIAGNOSTIC GROSS DESCRIPTION Pelvic washing. Received are approximately 72 mL of clear fluid. One thin-layer slide and a cell block are prepared from the fluid and submitted for Pap stain and H E stain, respectively. /ms Grossing performed at [facility] Pathology, [address] [place] [address], [address] [address]. Movie Producer: Wilfredo Bello M.D. CONTINUED ON NEXT PAGE RUN DATE: 08/09/[address] [facility] [place] [place] PAGE 2 RUN TIME: 1321 Specimen Inquiry RUN USER: INTERFACE SPEC #: [facility]:[id number] PATIENT: GARY CROOKS #[id number] (Continued) --- MICROSCOPIC DESCRIPTION Pelvic washing. Thin-layer and cell block slides are reviewed. Slides are virtually acellular. Nondiagnostic. /shawn Signed SIGNATURE ON FILE Scott Oliveira 08/09/20 1321 END OF REPORT [id number] 21:12:00 Test Item Value Reference Range Interpretation Comments CREATININE (test code = CREAT) 0.9 MG/DL 0.6-1.0 N COVID 19 INHOUSE [id number] 16:02:00 Test Item Value Reference Range Interpretation Comments COVID 19 INHOUSE AG NEGATIVE Negative Per manu facturer, (test code = negative result s should [id number]) be treated aspr esumptive and, if inconsi stent with clinical signs andsymptoms or necessary for patient man agement, should betested with an alternative mol ecular assay. Negative resultsdo not preclude SA RS-CoV-2 infection and s hould not be usedas the s ole basis for patient man agement decisions. Nega tive results should be considered in t he context of apatient's r ecent exposures, hist ory, presence of cli nicalsigns and symptoms co nsistent with COVID-19. CBC W/AUTO [id number] 16:01:00 Test Item Value Reference Range Interpretation Comments WHITE BLOOD CELL (test code = 7.7 K/mm3 3.5-11.0 N WBC) RED BLOOD CELL (test code = 4.71 M/mm3 4.70-6.10 N RBC) HEMOGLOBIN (test code = HGB) 14.6 G/DL 10.4-14.9 N HEMATOCRIT (test code = HCT) 44.1 % 31.5-44.1 N MEAN CELL VOLUME (test code = 93.6 Fl 84.5-98.6 N MCV) MEAN CELL HGB (test code = MCH) 31.0 pg 27.0-34.2 N MEAN CELL HGB CONCETRATION 33.1 G/DL 31.5-34.0 N (test code = MCHC) RED CELL DISTRIBUTION WIDTH 13.5 SD 11.5-14.5 N (test code = RDW) PLATELET COUNT (test code = 268 K/mm3 150-450 N PLT) MEAN PLATELET VOLUME (test code 9.60 fL 7.0-10.5 N = MPV) NEUTROPHIL % (test code = NT%) 56.6 % 40-76 N IMMATURE GRANULOCYTE % (test 0.1 % 0.0-5.0 N code = IG%) LYMPHOCYTE % (test code = LY%) 34.8 % 20.5-51.1 N MONOCYTE % (test code = MO%) 5.4 % 1.7-9.3 N EOSINOPHIL % (test code = EO%) 2.5 % 0.0-6.0 N BASOPHIL % (test code = BA%) 0.6 % 0.0-2.0 N NUCLEATED RBC % (test code = 0.0 /100WBC% 0.0-1.0 N NRBC%) NEUTROPHIL # (test code = NT#) 4.4 K/mm3 1.8-7.6 N IMMATURE GRANULOCYTE # (test 0.01 x10 3/uL 0.00-0.03 N code = IG#) LYMPHOCYTE # (test code = LY#) 2.7 K/mm3 0.6-3.2 N MONOCYTE # (test code = MO#) 0.4 K/mm3 0.3-1.1 N EOSINOPHIL # (test code = EO#) 0.2 K/mm3 0.0-0.4 N BASOPHIL # (test code = BA#) 0.1 K/mm3 0.0-0.1 N NUCLEATED RBC # (test code = 0.0 K/mm3 0.0-0.1 N NRBC#) MANUAL DIFF REQUIRED (test code NO DIFF/SCN CRITERIA = MDIFF) HCG SERUM [id number] 15:49:00 Test Item Value Reference Range Interpretation Comments HCG SERUM QUAL (test SERUM NEGATIVE SCREEN NEGATIVE code = HCGQL) [id number] 13:55:00 Test Item Value Reference Range Interpretation Comments SURG (test code = SURG) RUN DATE: 07/01/[address] [facility] [place], [place] PAGE 1 RUN TIME: 1355 Specimen Inquiry RUN USER: INTERFACE PATIENT: GARY CROOKS LOC: XenaLuzAURELIO U #: [id number] AGE/SX: 45/F ROOM: RE06/30/20REG DR: Alena Merida : 77 BED: DIS: STATUS: [place] [facility] [place]: SPEC #: [id number] RECD: 06/30/20 STATUS: KARL ZAVALA #: [id number] JANAE: 06/30/[address]: Alena Merida MD ENTERED: 06/30/20 SP TYPE: SURG OTHR DR: No Primary or Family PhysicianORDERED: SURG PATH LVL 4 COPIES TO: No Primary or Family Physician Alena Merida MD [address] [place] [id number] HISTOLOGY: TISSUE ID BLK PCS SHILOH LEV PROCEDURE DISPOSITION ____ ___ ___ ___ ENDOMETRIAL CAV A 1 1 PROCEDURES: SURG PATH LVL 4 (06/30/20) TISSUES: A. 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 Received in formalin are multiple fragments of pink-tyson soft tissue, 2.2 x 2.0 x 0.3 cm in aggregate. The entire specimen submitted as A1 and A2. ba/nr Grossing performed at [facility] Pathology, [address], [address], [place] [address]. Movie Producer: Wilfredo Bello M.D. CONTINUED ON NEXT PAGE RUN DATE: 07/01/20 SARAH C[facility] [place] [facility] PAGE 2 RUN TIME: 1355 Specimen Inquiry RUN USER: INTERFACE SPEC #: [id number] PATIENT: GARY CROOKS #[id number] (Continued) MICROSCOPIC DESCRIPTION Endometrial curettage. Sections demonstrate endometrial glands and stroma. The endometrium demonstrates secretory phase endometrium with no evidence of atypia or hyperplasia. Portions of myometrial type stroma are also identified occasional portions of the myometrial stroma demonstrate areas of endometrial glands and stroma. These findings are suggestive of adenomyosis, however the fragmented nature of the specimen limits interpretation. Additionally the presence of prominent myometrial type tissue is suggestive of a superficial leiomyoma/adenomyoma. No dysplasia or malignancy is seen. Signed SIGNATURE ON FILE Manuel Cheney 07/01/20 9411 END OF REPORT HCG SERUM [id number] 11:28:00 Test Item Value Reference Range Interpretation Comments HCG SERUM QUAL (test SERUM NEGATIVE SCREEN NEGATIVE code = HCGQL) COVID 19 INHOUSE [id number] 11:24:00 Test Item Value Reference Range Interpretation Comments COVID 19 INHOUSE AG NEGATIVE Negative Per manu facturer, (test code = negative result s should [id number]) be treated aspr esumptive and, if inconsi stent with clinical signs andsymptoms or necessary for patient man agement, should betested with an alternative mol ecular assay. Negative resultsdo not preclude SA RS-CoV-2 infection and s hould not be usedas the s ole basis for patient man agement decisions. Nega tive results should be considered in t he context of apatient's r ecent exposures, hist ory, presence of cli nicalsigns and symptoms co nsistent with COVID-19. CBC W/AUTO [id number] 11:16:00 Test Item Value Reference Range Interpretation Comments WHITE BLOOD CELL (test code = 7.6 K/mm3 3.5-11.0 N WBC) RED BLOOD CELL (test code = 4.59 M/mm3 4.70-6.10 L RBC) HEMOGLOBIN (test code = HGB) 14.2 G/DL 10.4-14.9 N HEMATOCRIT (test code = HCT) 42.5 % 31.5-44.1 N MEAN CELL VOLUME (test code = 92.6 Fl 84.5-98.6 N MCV) MEAN CELL HGB (test code = MCH) 30.9 pg 27.0-34.2 N MEAN CELL HGB CONCETRATION 33.4 G/DL 31.5-34.0 N (test code = MCHC) RED CELL DISTRIBUTION WIDTH 13.8 SD 11.5-14.5 N (test code = RDW) PLATELET COUNT (test code = 242 K/mm3 150-450 N PLT) MEAN PLATELET VOLUME (test code 9.60 fL 7.0-10.5 N = MPV) NEUTROPHIL % (test code = NT%) 55.5 % 40-76 N IMMATURE GRANULOCYTE % (test 0.3 % 0.0-5.0 N code = IG%) LYMPHOCYTE % (test code = LY%) 31.5 % 20.5-51.1 N MONOCYTE % (test code = MO%) 8.7 % 1.7-9.3 N EOSINOPHIL % (test code = EO%) 3.3 % 0.0-6.0 N BASOPHIL % (test code = BA%) 0.7 % 0.0-2.0 N NUCLEATED RBC % (test code = 0.0 /100WBC% 0.0-1.0 N NRBC%) NEUTROPHIL # (test code = NT#) 4.2 K/mm3 1.8-7.6 N IMMATURE GRANULOCYTE # (test 0.02 x10 3/uL 0.00-0.03 N code = IG#) LYMPHOCYTE # (test code = LY#) 2.4 K/mm3 0.6-3.2 N MONOCYTE # (test code = MO#) 0.7 K/mm3 0.3-1.1 N EOSINOPHIL # (test code = EO#) 0.3 K/mm3 0.0-0.4 N BASOPHIL # (test code = BA#) 0.1 K/mm3 0.0-0.1 N NUCLEATED RBC # (test code = 0.0 K/mm3 0.0-0.1 N NRBC#) MANUAL DIFF REQUIRED (test code NO DIFF/SCN CRITERIA = MDIFF) Notes Date/Time Note Provider Source 2020-08-14 22:39:00-00:00 [id number] [address] PATIENT NAME: GARY CROOKS ADMIT DATE: 08/04/20 ACCOUNT NO: [id number] ROOM NO: AGE: 45 REPORT TYPE: OPERATIVE REPORT SEX: F ADMITTING PHYSICIAN: ATTENDING PHYSICIAN: Alena Merida MD OPERATION DATE: 08/04/2020 PREOPERATIVE DIAGNOSES: Endometrial hyperplasia with atypia, endometriosis of the uterus (AUB-A), menorrhagia. POSTOPERATIVE DIAGNOSES: Endometrial hyp erplasia with atypia, endometriosis of the uterus (AUB-A), menorrhagia. PROCEDURES PERFORMED: Total laparoscopic hysterectomy, bilateral salpingectomy, and pelvic washings. ANESTHESIA: General endotracheal. SURGEON: Alena Merida MD SWITCH MAKER: Luisa Patel, the first assi st. If the name of the director of first impressions is different, please refer to my short op note. ESTIMATED BLOOD LOSS: Minimal. COMPLICATIONS: No complications. DRAINS: None. SPECIMENS: Uterus, bilateral tubes, pelvic washi ngs. CONDITION: The patient's condition is stable. FINDINGS: The uterus was found to be anteflexed. Ovaries appeared to be completely unremarkable. Both tubes were well vi sualized. No evidence of any other endometriosis was noted. Pelvic washings w ere obtained. Omentum, upper abdominal surfaces, all peritoneal surfaces were unremarkable. ____ of the uterus was unremarkable. INDICATIONS: The patient is a 45-year-old gravid a 0, who presented with heavy bleeding. She was evaluated with a trans vaginal ultrasound. The tripe appeared to be within normal limits. As the patient was o verweight and has risks for endometrial atypia, we decid ed to perform endometrial sampling with endometrial biopsy specimen retriever. O nce this was done, there was endometrium with focal atypia. This pathology was done at ____. So, it was read as focal complex hyperplasia with atypia and squamous metaplasia arising in the background of PATIENT NAME: GARY CROOKS 55 disordered proliferative endometrium. As the biopsy was retrieved with Pipelle without visualization of the uterine cavity, she was taken for hysteroscopy and visua lized. The entire cavity was unremarkable. The cavity was curetted th oroughly and the specimen did not show any atypia or malignancy on that specimen. We di scussed about the pathology report. We discussed about the presence of atypi a and very high risk of progression to cancer, also coincidental diagnosis of endometrial cancer usually early since the patient was 2 and was in itially interested in not preserving her fertility, now has changed her mi nd that she was very sure she did not want to proceed with any type of medical treatment options we discussed about the LNG-IUS as well as high dose progester one therapy and consultation with a J[employer]IOR [employer]OR oncologist as well as infertility spe cialist. After contemplating, the patient decided that she wanted to proceed w ith hysterectomy and preservation of the ovaries was recommended as there is pathology that warrants complete removal of ovaries and staging. She understood that she would go back and get a staging procedure if that pathology tu rned out to be to be positive for cancer that is more than stage 1B. PROCEDURE IN DETAIL: After i nformed consent was verified, she was taken back to the OR and based on the ____ recommendat ion, she got Ancef 3 grams and she was taken back to the OR, placed in supine position on the operating table. General anesthesia was given, placed in dorsal l ithotomy position. Arms were tucked by the side and pelvic exam was performed. Abdomen, vulva, vagina, and perineum prepped and draped in sterile fashion. Mitchell caroline armando to drain the bladder and attached to a retrograde filling and a m edium VCare introduced into the uterus and fixed in place. This area was then draped. 1 cm infraumbilical incision made with scalpel using open laparoscopy technique, though the fascia was a deep, incision was made directly ____ and the Elie clamps were placed on each s thomas, each edge was sutured with 0 Vicryl sutures on both sides and peritoneum entered sharply. S ret ractors placed, Josiah introduced. Site of entry checked unremarkable. After examining the upper abdominal survey completely and closely, no evid ence of any abnormal implant. The patient was placed in Trendelenburg and the evaluation of the anterior abdominal wall was done. The uterus appeared to be free. No evidence of any masses or abnormalities. No evidence of any endo metriosis. Ovaries were completely unremarkable Tubes noted and no disto rtion of the anatomy of the ureters. 1 cm suprapubic incision to the left and right l ower quadrant, 5 ports were placed and for retraction about 3-0 Monocryl wer e placed on the epiploicae of the sigmoid colon and pulled out with the Rafi -Spaulding needle in left upper quadrant for retraction, hel d on hemostat. Then, hysterectomy was started after doing pelvic washings. These were retrieved and then started taking the left tube, mesosalpinx, round ligament, utero-ovarian ligament and draped in the anterior lip of the bladder flap going a ll the way over. There was significant amount of adhesions in the a nterior pelvic, peritoneum though the bladder would not be dissected easily. Once identifying the bl adder, no evidence of any masses or tumor was noted. This just kaiser eared to be somewhat of dense adhesive endometriosis like scarring. Given the presence of a suspicion of adenomyosis in this patient, this could be possible that implants were not discretely seen. Then, dissection was carried to dissect the posterior peritoneum all the way to PATIENT NAME: GARY CROOKS 55 the left uterosacral ligamen t. Once this was done, the round ligament was taken down. The vessels were skeletonized. It was slig htly difficult to completely see the area of the bladder here. Once the bladder muscle was dissected off the anterior vaginal wall on the left side and went back to the other side, the tube was detached. The utero-ovarian ligament, mesosa lpinx and round ligament were all taken down. Anterior broad ligament connecte d for a bladder flap, then similarly on the opposite side. Adhesions and sc arring was seen. Bladder was filled and drained to parvez its margins. Once thi s was done, the bladder was dissected inferiorly, then the posterior periton eum taken down. The broad ligament was taken down to e xpose the vessels. The vessels were taken down with the help of the bipolar paddle tip. Once this wa s done, then the LigaSure was used to take down the vessel s. Then, the cardinal ligaments were taken down and on the opposite side, the vessels and cardinal l igaments were taken down. A circumferential colpotomy with the monop olar hook blade was performed and then specimen pulled out through the vagina. Once this was done, thorough irrigation and suction was performed. The bladder w as looked at and 3-0 Vicryl suture was placed in a [id number] fashion in order for me to close the area that appeared to be slightly disruptive on the detrus or muscle. No evidence of any leak. No evidence of any full-thickness injury. The oversew just to make sure that this area hea led itself. Then, two simple, 0 Vicryl s utures were placed on both ends of the vaginal cuff and three figure of eight were placed in the center. Good apposition was seen. Good support and the fascial reapproximation of the anterior and posterior wall to avoid any prolapse and the ligaments were jaime pended to the apex anyway, so that was la good level 1 support. Thorough irrigation and suct ion of all the pedicles was done and the ureters and no evidence of electrical, m echanical or thermal injury to them. Then, I pulled the scope back. All the trocars were removed. Ga s was desufflated. The epiploica were released and the Monocryl removed . The injection at skin and fascia was done at the entry and exit of all the ports, then the fascial incision at the umbilicus was closed. gas was co mpletely desufflated and the Josiah was removed. Tag sutures of 0 Vicryl were tagged to each other to close this incision there and a simple 0 Vicryl stitch and the deep connective tissue was very difficult to access the peritone um and the fascia at the suprapubic site. All skin incisions with interru pted 4-0 Monocryl sutures and then the strips were placed. Instrument and spon ge counts were correct at the end of the case. Vaginal sponge for retraction w as removed. Cystoscopy was performed with 17-Turkish sheath 30-degree lens n ormal saline. Excellent jets of urine from both ureteral orifices. No evidenc e of any trauma to the bladder area above the trigone, trigone, lateral gaffney and dome. No blood and the urine was clear. Mitchell was left out after dr nicholsning the bladder, Again, the vaginal sponge was removed. Instrument and s ponge counts were correct at the end of the case. The patient tolerated the p rocedure well. She was extubated in the OR and taken to PACU in stable condition. Discharged on the same day. She has an appointment in 1 week and s he has all instructions refer to regular diet and ambulation. Dictated By: Alena Merida MD WT: OP:L.OKSANA/LIN/ATTILA PATIENT NAME: GARY CROOKS 89 Conf#: [id number]/DID#: [id number] Authenticated and Edited by Alena Merida MD On 08/21/20 9:49:19 AM at 0951 PATIENT NAME: GARY CROOKS 55 2020-08-04 10:10:00-00:[address] [facility] ([facility]) Brief Op Note REPORT#:[id number] REPORT STATUS: Signed DATE:08/04/20 TIME:1010 PATIENT: GARY CROOKS UNIT #: [id number] ROOM/BED: : 77 AGE: 45 SEX: F ATTEND: Sa stevie Merida MD ADM AUTHOR: Alena Merida MD * ALL edits or amendments must be made on the el [facility]/computer document * Op/Inv Proc Note - Brief Pre-procedure diagnosis: EIN, AUB-O Post-procedure diagnosis: same as pre procedure dx Procedures performed: TLH BS, cystoscopy, difficult procedure due to dense adhesions in anterior and posterior CDS, endometriosis excision Primary Surgeon: [facility] District Engineer(s): Rebekah Knight Anesthesia: general anesthesia Findings: normal Complications: none Estimated blood loss in ml's: minimal<50 Specimens removed/altered: none (uterus tubes, pelvic washings), uterus tubes, endometriosis on left lateral posterior uterine specimen margin; short segment of left tube (proximal segme nt), distal segment left tube with paratubal cysts, one long right tubal segment Drain(s): None Approach: laparoscopic Wound class: clean-contaminated at 1345 RPT #: [id number] END OF REPORT 2020-06-30 10:23:00-00:00 [id number] [facility] [address] [place] [address] PATIENT NAME: GARY CROOKS ADMIT DATE: 06/30/20 ACCOUNT NO: [id number] ROOM NO: AGE: 45 REPORT TYPE: OPERATIVE REPORT SEX: F ADMITTING PHYSICIAN: ATTENDING PHYSICIAN: Kate Oconnell OPERATION DATE: 06/30/2020 PREOPERATIVE DIAGNOSIS: Abnormal uterine bleedin g due to endometrial atypia. POSTOPERATIVE DIAGNOSIS: Abnormal uterine bleedi ng due to endometrial atypia. PROCEDURE PERFORMED: Diagnos tic hysteroscopy, resection of the endometrium or D and C with the MyoSure Lite. SURGEON: Alena Merida MD ASSISTANTS: None. SPECIMENS: Endometrial curettings. ANESTHESIA: General anesthesia with LMA. COMPLICATIONS: No complications. DRAINS: None. CONDITION: The patient's condition is stable. ESTIMATED BLOOD LOSS: Minimal. FINDINGS: Endometrium appeared to be irr egular in the posterior wall and right lateral wall. No intracavitary masses were noted . Adequate sample was retrieved. INDICATIONS: The patient is a 45-year-old female with heavy bleeding. Transvaginal ultrasound was performed. Thickened endometrium was noted. Endometrial biopsy with a Pipelle in the office was performed. The pathology returned as focal atypia with endometrial hyperp lasia. No endometrial adenocarcinoma was noted. We discussed t brennan pathology results with the patient. Since a blind biopsy was performed, we want to m tammie sure that the endometrial cavity was visualized and ad equate sampling under visualization was performed to rule out any existing detectable endometrial sophy nocarcinoma. The patient does have risk factors for this. She is heavyset. So she was consented and brought to the hospital for hysteroscopy and D and C wit h MyoSure Lite. PROCEDURE IN DETAIL: After informed consent was re-verified in the hospital, she was taken back to the OR. General anesthesia was given. She was placed in PATIENT NAME: GARY CROOKS 28 dorsal lithotomy position using Franky stirrups. Pelvic exam was performed. Then the vulva, vagina, and perineum prepped and draped in sterile fashion. Speculum placed to expose the cervix. Cervix was dilated to 16-Turkish. Then, the MyoSure scope was taken and using diagnostic sheath went in to visualize the endometrial cavity. The cavity was empty. Endome trium lining appeared to be irregular in the posterior gaffney and the right l ateral wall most prominently. No other cavitary masses were seen. Both tubal o stia visualized and entire cavity was well visualized. The resectio n device was then inserted through the scope and the thinner resection device was used to perform an adequate endometrial sampling procedure of all gaffney of t he endometrial cavity. Once this was done adequately, then the scope was rem maryjane as well as the resection device. Instrument, needle, and sponge counts we re correct at the end of the case. The patient tolerated the procedure well. She got 30 mg of Toradol. She was recovered from anesthesi a in the OR, had strong spell of coughing with a lot of mucus production. 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 She will be admitted and she will be observed. Her sats were stable. Recovered from the OR and brought to the PACU in stable condition. She will be discharged today. She has all instru ctions for discharge and has a followup appointment in 1 week for pathology edita gomez. She understands the plan that if this is atypia confirmed even on th is sampling, then we will proceed with a hysterectomy and bilateral salpin gectomy. If there is endometrial adenocarcinoma detected, she will be referred to a gynecologic oncologist. Her mother was called to give her an update after the procedure. Dictated By: Alena Merida MD WT: OP:PASCUAL/LIN/ATTILA Conf#: [id number]/DID#: [id number] Authenticated and Edited by Alena Merida MD On 07/07/20 4:04:43 PM at 1606 PATIENT NAME: GARY CROOKS 2020-06-30 10:10:00-00:[address] [facility] ([facility]) Brief Op Note REPORT#:[id number] REPORT STATUS: Signed DATE:06/30/20 TIME:1010 PATIENT: GARY CROOKS UNIT #: [id number] ROOM/BED: : 77 AGE: 45 SEX: F ATTEND: Sa stevie Merida MD ADM AUTHOR: Alena Merida MD * ALL edits or amendments must be made on the el [employer]/computer document * Op/Inv Proc Note - Brief Pre-procedure diagnosis: EIN, AUB-O Post-procedure diagnosis: same as pre procedure dx Procedures performed: Hysteroscopy D c with myosure lite Primary Surgeon: [facility] District Engineer(s): none Anesthesia: general anesthesia, monitored anes. care (LMA) Findings: irregular endometrium, posterior adn right later al wall, no masses, adequate sampling Complications: none Estimated blood loss in ml's: none Specimens removed/altered: endometrial curetting s Drain(s): None Approach: Hysteroscopic Disposition: stable Dictation number: [id number] at [address] [place] [address] #: [id number] END OF REPORT
[2023-03-22] MEDS ORDERED: KETOROLAC 30 MG/ML INJ ONE (08:42)
--- NOTE | 2023-03-22 10:15 | ER ---
Nurse's Notes [facility] Name: Darshana Haddad Age: 48 yrs Sex: Female : 1975 Arrival Date: 03/22/2023 Time: 08:13 Bed 5 Private MD: Diagnosis: Mechanical fall, left pelvic contusion, lumbar muscle strain. Presentation: 03/22 08:26 Chief complaint: Slipped descending wooden deck stairs and landed on left lower back, hb now c/o left low back pain 03/31. Coronavirus screen: At this time, the client does not indicate any symptoms associated with coronavirus-19. Ebola Screen: No symptoms or risks identified at this time. Initial Sepsis Screen: Does the patient meet any 2 criteria? No. Patient's initial sepsis screen is negative. Does the patient have a suspected source of infection? No. Patient's initial sepsis screen is negative. Risk Assessment: Do you want to hurt yourself or someone else? Patient reports no desire to harm self or others. Onset of symptoms was March 22, 2023. 08:26 Method Of Arrival: Ambulatory hb 08:26 Acuity: ASIM 3 hb 10:30 Care prior to arrival: None. Mechanism of Injury: Fall down steps. Trauma event ko1 details: Injury occurred in the [facility]. 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 - Hysterectomy ko1 Trauma Activation: Not Applicable Physician: ED Physician; Name: ; Notified At: ; Arrived At: Physician: General Surgeon; Name: ; Notified At: ; Arrived At: Physician: Radiology; Name: ; Notified At: ; Arrived At: Physician: Respiratory; Name: ; Notified At: ; Arrived At: Physician: Lab; Name: ; Notified At: ; Arrived At: Historical: - Allergies: 08:27 No Known Allergies; hb - Home Meds: 08:27 statin [Active]; metformin Oral [Active]; Spironolactone Oral [Active]; Fish Oil oral hb [Active]; multivitamin oral tablet [Active]; - PMHx: 08:27 Migraines; varicose veins; hb - Immunization history: Last tetanus immunization: unknown. - Social history:: Smoking status: Patient reports the use of cigarette tobacco products, smokes one pack cigarettes per day. Screenin:25 Abuse screen: Denies threats or abuse. Denies injuries from another. Tuberculosis ko1 screening: No symptoms or risk factors identified. 08:36 [facility] ED Fall Risk Assessment (Adult) History of falling in the last 3 months, ko1 including since admission Yes- single mechanical fall (1 pt) Confusion or Disorientation No (0 pts) Intoxicated or Sedated No (0 pts) Impaired Gait No (0 pts) Mobility Assist Device Used No (0 pt) Altered Elimination No (0 pt) Score/Fall Risk Level 0 - 2 = Low Risk Oriented to surroundings, Maintained a safe environment, Educated pt \T\ family on fall prevention, incl call for assistance when getting out of bed, Assessed \T\ reinforced patient's understanding of fall precautions, Provided non-skid footwear, Hourly rounding (assess needs \T\ fall precautionary measures) done, Used ambulatory aids as needed (educated on \T\ assisted with), Used gait belt as appropriate. Nutritional screening: No deficits noted. Primary Survey: 08:25 NO uncontrolled hemorrhage observed. A: The client is awake and alert. The airway is ko1 patent. The client is alert. Airway: patent, Oral cavity: clear. Breathing/Chest: Spontaneous respiratory effort, equal unlabored respirations, breath sounds clear bilaterally, regular pattern, symmetrical chest rise and fall. Circulation: No external hemorrhage present. Regular and strong central pulse, skin warm/dry/normal color. Disability Pupils are equal, round, reactive to light and accommodation. Client is alert. Exposure/Environment: There is no evidence of uncontrolled external bleeding. Reassessment Alertness and Airway: Awake and alert. The airway is patent. Breathing: Spontaneous respiratory effort, equal unlabored respirations, breath sounds clear bilaterally, regular pattern with symmetrical chest rise and fall. Circulation: No external hemorrhage noted. Regular and strong central pulse, skin warm/dry/normal color. Disability: Pupils Pupils are equal, round, reactive to light and accomodation. Assessment: 08:25 General: Appears distressed, uncomfortable, Behavior is calm, cooperative, appropriate ko1 for age. Pain: Complains of pain in left low back. Neuro: No deficits noted. EENT: No deficits noted. Cardiovascular: No deficits noted. Respiratory: No deficits noted. GI: No deficits noted. : No deficits noted. Derm: No deficits noted. Musculoskeletal: Reports pain in left low back. Vital Signs: 08:26 BP 152 / 91; Pulse 72; Resp 16; Temp 98.3(O); Pulse Ox 100% ; Weight 131.54 kg; Height hb 5 ft. 7 in. ; Pain 9/10; 08:36 BP 146 / 103; Pulse 75; Resp 18; Pulse Ox 100% ; ko1 09:44 Pulse 69; Resp 18; Pulse Ox 100% on R/A; ko1 08:26 Body Mass Index 45.42 (131.54 kg, 170.18 cm) hb 08:26 Pain Scale: Adult hb Hope Coma Score: 08:25 Eye Response: spontaneous(4). Motor Response: obeys commands(6). Verbal Response: ko1 oriented(5). Total: 15. Trauma Score (Adult): 08:25 Eye Response: spontaneous(1); Verbal Response: oriented(1); Motor Response: obeys ko1 commands(2); Systolic BP: > 89 mm Hg(4); Respiratory Rate: 10 to 29 per min(4); Melva Score: 15; Trauma Score: 12 ED Course: 08:15 Patient arrived in ED. im 08:17 Patricia Wren MD is Attending Physician. sp3 08:25 Ivon Jean, EULOGIO is Primary Nurse. ko1 08:25 Patient has correct armband on for positive identification. Bed in low position. Call ko1 light in reach. Side rails up X2. Patient maintains SpO2 saturation greater than 95% on room air. 08:25 Patient maintains SpO2 saturation greater than 95% on room air. ko1 08:27 Triage completed. hb 08:30 Arm band placed on left wrist. Patient placed in an exam room, on a stretcher, Patient ko1 notified of wait time. 08:45 Inserted saline lock: 24 gauge in left hand, using aseptic technique. ko1 08:45 IV discontinued, intact, bleeding controlled, No redness/swelling at site. Pressure ko1 dressing applied. 09:25 Lumbar Spine (3 Views) XRAY In Process Unspecified. EDMS 09:25 Pelvis XRAY In Process Unspecified. EDMS 10:31 Provided Education on: na. ko1 10:31 No provider procedures requiring assistance completed. Inserted. ko1 10:34 Thermoregulation: warm blanket given to patient. ko1 Administered Medications: 08:48 Drug: Ketorolac IVP 30 mg Route: IVP; Site: left hand; ko1 Medication: 08:36 VIS not applicable for this client. ko1 Intake: 10:30 PO: 0ml; IV: 0ml; Total: 0ml. ko1 Output: 10:30 Urine: 0ml; Total: 0ml. ko1 Outcome: 08:45 Discharge instructions given to patient, family, Instructed on discharge instructions, ko1 follow up and referral plans. medication usage, Demonstrated understanding of instructions, follow-up care, medications, Prescriptions given X 2. 10:14 Discharge ordered by . sp3 10:30 Discharged to home ambulatory, with family. ko1 10:30 Condition: improved 10:30 Patient's length of stay was not longer than 2 hours. 10:34 Patient left the ED. ko1 Signatures: Dispatcher [employer] EDMS Sharlene Ruiz, RN RN Patricia Wren MD MD sp3 Ivon Jean RN RN ko1 Dulce Woodward Corrections: (The following items were deleted from the chart) 09:47 09:44 Pulse 69bpm; Resp 18bpm; Pulse Ox 100% RA; ko1 ko1
--- NOTE | 2023-03-22 10:15 | EDPHYS ---
Physician Documentation [facility] Name: Darshana Haddad Age: 48 yrs Sex: Female : 1975 Arrival Date: 03/22/2023 Time: 08:13 Bed 5 Private MD: ED Physician Patricia Wren HPI: 03/22 08:24 This 48 yrs old Female presents to ER via Unassigned with complaints of Fall Injury - sp3 left side low back. 08:24 48-year-old female with a history of hyperlipidemia, prediabetic, presents to the ED sp3 with mechanical ground-level fall going down wooden steps on her patio outside this morning. Patient slipped and then hit the side rail with her back and subsequently falling to the ground. She denies any head injury, neck injury, headache, neck pain, chest pain, upper back pain, abdominal pain, nausea, vomiting, diarrhea, bleeding, loss of bowel or bladder control, numbness or tingling, extremity pain, or any other signs or symptoms on ROS at this time. Pain is described primarily as left lower back onto her pelvic crest area. Patient was able to drive here and is able to ambulate although it is painful. She describes as a sharp pain in her muscle that subsides on certain positions.. 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 - Social history:: Smoking status: Patient reports the use of cigarette tobacco products, smokes one pack cigarettes per day. ROS: 08:26 Constitutional: Negative for fever, chills, and weight loss, Eyes: Negative for injury, sp3 pain, redness, and discharge, ENT: Negative for injury, pain, and discharge, Neck: Negative for injury, pain, and swelling, Cardiovascular: Negative for chest pain, palpitations, and edema, Respiratory: Negative for shortness of breath, cough, wheezing, and pleuritic chest pain, Abdomen/GI: Negative for abdominal pain, nausea, vomiting, diarrhea, and constipation, MS/Extremity: Negative for injury and deformity, Skin: Negative for injury, rash, and discoloration, Neuro: Negative for headache, weakness, numbness, tingling, and seizure, Psych: Negative for depression, anxiety, suicide ideation, homicidal ideation, and hallucinations, Allergy/Immunology: Negative for hives, rash, and allergies, Endocrine: Negative for neck swelling, polydipsia, polyuria, polyphagia, and marked weight changes. 08:26 All other systems are negative. Exam: 08:26 Constitutional: This is a well developed, well nourished patient who is awake, alert, sp3 and in no acute distress. Head/Face: Normocephalic, atraumatic. Chest/axilla: Normal chest wall appearance and motion. Nontender with no deformity. No lesions are appreciated. Cardiovascular: Regular rate and rhythm with a normal S1 and S2. No gallops, murmurs, or rubs. Normal PMI, no JVD. No pulse deficits. Respiratory: Lungs have equal breath sounds bilaterally, clear to auscultation and percussion. No rales, rhonchi or wheezes noted. No increased work of breathing, no retractions or nasal flaring. Abdomen/GI: Soft, non-tender, with normal bowel sounds. No distension or tympany. No guarding or rebound. No evidence of tenderness throughout. Skin: Warm, dry with normal turgor. Normal color with no rashes, no lesions, and no evidence of cellulitis. MS/ Extremity: Pulses equal, no cyanosis. Neurovascular intact. Full, normal range of motion. Neuro: Awake and alert, GCS 15, oriented to person, place, time, and situation. Cranial nerves II-XII grossly intact. Motor strength 5/5 in all extremities. Sensory grossly intact. Cerebellar exam normal. Normal gait. Psych: Awake, alert, with orientation to person, place and time. Behavior, mood, and affect are within normal limits. 08:26 Back: No pain on any bony prominences. Muscular pain is elucidated on palpation of the left lower side just medial to the left pelvic crest.. Vital Signs: 08:26 BP 152 / 91; Pulse 72; Resp 16; Temp 98.3(O); Pulse Ox 100% ; Weight 131.54 kg; Height hb 5 ft. 7 in. ; Pain 9/10; 08:36 BP 146 / 103; Pulse 75; Resp 18; Pulse Ox 100% ; ko1 09:44 Pulse 69; Resp 18; Pulse Ox 100% on R/A; ko1 08:26 Body Mass Index 45.42 (131.54 kg, 170.18 cm) hb 08:26 Pain Scale: Adult hb Melva Coma Score: 08:25 Eye Response: spontaneous(4). Motor Response: obeys commands(6). Verbal Response: ko1 oriented(5). Total: 15. Trauma Score (Adult): 08:25 Eye Response: spontaneous(1); Verbal Response: oriented(1); Motor Response: obeys ko1 commands(2); Systolic BP: > 89 mm Hg(4); Respiratory Rate: 10 to 29 per min(4); Wilmot Score: 15; Trauma Score: 12 MDM: 08:21 Patient medically screened. sp3 08:26 Data reviewed: vital signs, nurses notes, radiologic studies. ED course: 48-year-old sp3 female with PMH above now presents with mechanical ground-level fall. I believe pain is mainly musculoskeletal and on the left lower back region. Will obtain lumbosacral spinal x-rays and pelvis x-ray as well as administer ketorolac IV 30 mg for symptomatic control. Patient will be driving home so we will avoid any narcotics or benzodiazepines at this time. Disposition pending work-up and patient course with likely discharge home once symptom resolution or improvement.. 10:13 ED course: Pain is improved. Imaging is negative for any acute findings. Will discharge sp3 patient home on NSAID and Flexeril with PCP follow-up.. 03/22 08:23 Order name: Lumbar Spine (3 Views) XRAY; Complete Time: 10:32 sp3 03/22 08:23 Order name: Pelvis XRAY; Complete Time: 10:32 sp3 03/22 08:23 Order name: IV Saline Lock; Complete Time: 08:48 sp3 Administered Medications: 08:48 Drug: Ketorolac IVP 30 mg Route: IVP; Site: left hand; ko1 Disposition Summary: 03/22/23 10:14 Discharge Ordered Location: Home sp3 Condition: Stable sp3 Diagnosis - Mechanical fall, left pelvic contusion, lumbar muscle strain. sp3 Followup: sp3 - With: Private Physician - When: Upon discharge from the Emergency Department - Reason: Continuance of care Discharge Instructions: - Discharge Summary Sheet sp3 - Low Back Sprain or Strain Rehab sp3 Forms: - Medication Reconciliation Form sp3 - Thank You Letter sp3 - Antibiotic Education sp3 - Prescription Opioid Use sp3 - Patient Portal Instructions sp3 - Leadership Thank You Letter sp3 - Work release form ko1 Prescriptions: - Diclofenac Sodium 75 mg Oral Tablet Sustained Release - take 1 tablet by ORAL route 2 times per day; 30 tablet; Refills: 0, Product sp3 Selection Permitted - Cyclobenzaprine 5 mg Oral Tablet - take 1 tablet by ORAL route 3 times per day As needed; 15 tablet; Refills: 0, sp3 Product Selection Permitted Signatures: Dispatcher [employer] EDSharlene Dunn, RN Patricia Cordero MD MD sp3 Ivon Jean RN RN ko1
--- NOTE | 2023-03-22 10:25 | RAD REPORT ---
EXAM DESCRIPTION: RAD - Lumbar Spine 3 Views - 03/22/2023 9:24 am CLINICAL HISTORY: trauma COMPARISON: No comparisons TECHNIQUE: Lumbar spine, 3 views. FINDINGS: Lumbar vertebral bodies are normal in height and alignment. No fracture or acute bony proc ess seen. Multilevel endplate and facet joint degenerative changes, with mild disc height loss at T12 -L1. Degrees of bony neural foraminal narrowing suspected at L4-5 and L5-S1. Right upper quadrant jon gical clips which may relate to prior cholecystectomy. No other significant findings. IMPRESSION: No acute osseous abnormality. Degenerative changes as above.
--- NOTE | 2023-03-22 10:26 | RAD REPORT ---
EXAM DESCRIPTION: RAD - Pelvis - 03/22/2023 9:24 am CLINICAL HISTORY: TRAUMA COMPARISON: No comparisons TECHNIQUE: Single AP view of the pelvis. FINDINGS: The visualized pelvic ring is intact. No suspicious osseous lesions. No significant degene rative changes or erosions of the hip joints. Other pelvic joints are unremarkable. Visualized aspect s of the abdomen and soft tissues are unremarkable. IMPRESSION: No acute osseous abnormality of the bony pelvis.
[2023-03-22 11:03] VITALS: TEMP 98.3; O2SAT 100
[2023-03-22 11:04] VITALS: BP 146/103
== END 2023-03-22 10:34 | disposition home or self-care (01) ==
LOC: ER 08:13
DX: S39.012A Strain of muscle, fascia and tendon of lower back, initial encounter (principal); S30.0XXA Contusion of lower back and pelvis, initial encounter; W01.198A Fall on same level from slipping, tripping and stumbling with subsequent striking against other object, initial encounter; F17.210 Nicotine dependence, cigarettes, uncomplicated
CPT/HCPCS: 72100; 72170; 96374; 99285

== ENCOUNTER 2024-11-12 12:18 | Inpatient (IN) | payer OTHER ==
--- OUTSIDE RECORDS SUMMARY | 2024-11-12 12:21 | XMS REPORT | Continuity of Care Document ---
Author Name Unknown Address [address] [facility] [address] [place] [address] [facility] [place] Address [address] [facility] [place] [address] Care Team Providers Care Shaping Machine Tender Name Role Phone Danisha Reyes Attending Clinician Unavail able Moy Wren Attending Clinician Unavailable Alena Merida Attending Clinician Un available JOSE JUAN Attending Clinician Unavailable [email or web address]_S Attending Clinician Unavaila ble LAB90 Attending Clinician Unavailable Physician, No Primary or Family Admitting Clinic leela Unavailable [email or web address] Admitting Clinician Unavaila ble Payers Payer Name Policy Type Policy Number Effective Date Expirati on Date Source BCBS 2 [id number] 2022 00:00:[place] [id number] 2015 00:00:00 Blue [employer] [place] [employer] of [place] 6 [id number] 2015 00:00:00 [facility] Problems Condition Name Condition Details Condition Category Status Onset Date Resolution Date Last Treatment Date Treating Clinician Comments Source Elevated blood-pres sure reading without diagnosis of hypertensi on Elevated Blood-pres sure Reading without Diagnosis of Hypertensi on Problem Active 2023-07 00:00: 00 [facility] Incomplete emptying of urinary bladder Incomplete Emptying of Urinary Bladder Problem Active 2023-07 00:00: 00 [facility] Hyperchole sterolemia Hyperchole sterolemia Problem Active 2022-07 00:00: 00 [facility] Obesity Obesity Problem Active 2022-07 00:00: 00 [facility] Tobacco dependence syndrome Tobacco Dependence Syndrome Problem Active 2022-07 00:00: 00 [facility] Diabetes mellitus Diabetes Mellitus Problem Active 2022-07 00:00: 00 [facility] Severe obesity Severe Obesity Problem Active 2021-07 00:00: 00 [facility] Well adult exam Well adult exam Disease Active 04-10 00:00: 00 Natalya Collinsold - Externa l Vitamin D deficiency Vitamin D deficiency Disease Active 04-10 00:00: 00 Natalya Sealejandraold - Externa l Class 3 severe obesity due to excess calories without serious comorbidit y with body mass index (BMI) of 50.0 to 59.9 in adult Class 3 severe obesity due to excess calories without serious comorbidit y with body mass index (BMI) of 50.0 to 59.9 in adult Disease Active 04-10 00:00: 00 Natalya Collinsold - Externa l Hirsutism Hirsutism Disease Active 04-10 00:00: 00 Natalya Sealejandraold - Externa l Mixed hyperlipid emia Mixed hyperlipid emia Disease Active 02-06 00:00: 00 Natalya Sealejandraold - Externa l PCOS (polycysti c ovarian syndrome) PCOS (polycysti c ovarian syndrome) Disease Active 02-06 00:00: 00 Natalya Sealejandraold - Externa l Prediabete s Prediabete s Disease Active 02-06 00:00: 00 Natalya Collinsold - Externa l Screening mammograph y Screening Mammograph y Problem Active 2020-07 00:00: 00 [facility] Paresthesi a Paresthesi a Problem Active 2021-0 4-13 00:00: 00 [facility] Pelvic and perineal pain Pelvic and Perineal Pain Problem Active 4-13 00:00: 00 [facility] Female pelvic peritoneal adhesions Female Pelvic Peritoneal Adhesions Problem Active 3-18 00:00: 00 [facility] Constipati on Constipati on Problem Active 1-25 00:00: 00 [facility] Endometrio sis of uterus Endometrio sis of Uterus Problem Active 2019-07 2-17 00:00: 00 [facility] 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 Problem Active 2019-07 2-02 00:00: 00 [facility] Vitamin D deficiency Vitamin D Deficiency Problem Active 2019-07 00:00: 00 [facility] Pure hyperglyce ridemia Pure Hyperglyce ridemia Problem Active 2019-07 00:00: 00 [facility] Excessive and frequent menstruati on Excessive and Frequent Menstruati on Problem Active 2019-07 00:00: 00 [facility] Human papillomav irus deoxyribon ucleic acid detected, high risk on cervical specimen Human Papillomav irus Deoxyribon ucleic Acid Detected, High Risk on Cervical Specimen Problem Active 2019-07 00:00: 00 [facility] Dysmenorrh ea Dysmenorrh ea Problem Active 2019-07 0-28 00:00: 00 [facility] Headache Headache Problem Active 2019-07 028 00:00: 00 [facility] Hyperlipid emia Hyperlipid emia Problem Active 2016-07 00:00: 00 [facility] Hypertroph ic condition of skin Hypertroph ic Condition of Skin Problem Active 2016-0714 00:00: 00 [facility] Irregular periods Irregular Periods Problem Active 2016-07 0 00:00: 00 [facility] Hirsutism Hirsutism Problem Active 2016-07 0 00:00: 00 [facility] Microscopi c hematuria Microscopi c Hematuria Problem Active 2015-07 0 00:00: 00 [facility] History of dysplasia of cervix History of Dysplasia of Cervix Problem Active 2015-07 0 00:00: 00 [facility] Gynecologi willow examinatio n abnormal Gynecologi willow Examinatio n Abnormal Problem Active 2015-07 00:00: 00 [facility] Tobacco dependence caused by cigarettes Tobacco Dependence Caused by Cigarettes Problem Active 2015-07 0 00:00: 00 [facility] Gastro-eso phageal reflux disease without esophagiti s Gastro-eso phageal reflux disease without esophagiti s Problem Active [facility] FH: Diabetes mellitus Family history of diabetes mellitus Problem Active [facility] [id number] Hyperglyce bro Problem Active [facility] Edema Edema Problem Active [facility] [id number] Body mass index (BMI) of 45.0-49.9 in adult Problem Active [facility] [id number] Rash and nonspecifi c skin eruption Problem Active [facility] [id number] Itching Problem Active [facility] [id number] Morbid obesity Problem Active [facility] [id number] Throat symptom Problem Active [facility] [id number] Peripheral edema Problem Active [facility] [id number] Bilateral hearing loss, unspecifie d hearing loss type Problem Active [facility] [id number] Elevated testostero ne level in female Problem Active [facility] [id number] Chest pressure Problem Active [facility] [id number] Shortness of breath Problem Active [facility] Nonintract able headache, unspecifie d chronicity pattern, unspecifie d headache type Nonintract able headache, unspecifie d chronicity pattern, unspecifie d headache type Problem Active [facility] Allergies, Adverse Reactions, Alerts Allergy Name Allergy Type Status Severity Reaction(s) Onset Date Inactive Date Treating Clinician Comments Source No Known Allergie s DA Active U 08-02 00:00: 00 [facility] No Known Allergie s DA Active U 08-02 00:00: 00 [facility] No Known Drug Allergie s DA Active U 2019-07 00:00: 00 [facility] No Known Drug Allergie s DA Active U 2019-07 00:00: 00 [facility] No Known Contrast Allergie s DA Active U 03-16 00:00: 00 [facility] No Known Drug Allergie s DA Active U 03-16 00:00: 00 [facility] No Known Food Allergie s DA Active U 03-16 00:00: 00 [facility] No Known Other Allergie s DA Active U 03-16 00:00: 00 [facility] Social History Social Habit Start Date Stop Date Quantity Comments Source History of Tobacco Use Current Smoker [facility] History SDOH Alcohol Frequency Natalya snyder - External History SDOH Alcohol Std Drinks Natalya see - External History SDOH Alcohol Binge Natalya Cho - External Alcohol intake 2022-08-08 00:00:00 2022-08-08 00:00:00 Current drinker of alcohol (finding) Natalya Cho - External Education 2022-04-10 00:00:00 2022-04-10 00:00:00 16 Natalya Cho - External Cigarettes smoked current (pack per day) - Reported 2022-02-06 00:00:00 2022-02-06 00:00:00 Natalya Cho - External Cigarette pack-years 2022-02-06 00:00:00 2022-02-06 00:00:00 Natalya Hernandez External Tobacco use and exposure 2022-02-06 00:00:00 2022-02-06 00:00:00 Smokeless tobacco non-user Natalya Cho - External Alcohol Comment 2022-02-06 00:00:00 2022-02-06 00:00:00 rarely Natalya Cho - External Sex Assigned At 1975 00:00:00 1975 00:00:00 Natalya Hernandez External Smoking Status Start Date Stop Date Source Current Every Day Smoker [facility] Medications Ordered Medication Name Filled Medication Name Start Date Stop Date Current Medication? Ordering Clinician Indication Dosage Frequency Signature (SIG) Comments Components Source Spironolact one 25 MG oral Tablet 08-08 11:18: 46 Yes 25mg Take 25 mg by mouth daily Natalya Hernandez Externa l Sennosides (Senna) 8.6 MG oral Capsule 08-08 11:18: 46 Yes 1{capsu le} Take 1 capsule by mouth every other day Natalya choudhary Cholecalcif emmanuelle (D3-1000) 25 MCG (1000 UT) oral Capsule 08-08 11:18: 46 Yes 1000U Take 1,000 units by mouth daily Natalya choudhary Metformin HCl 500 MG oral Tablet 07-25 00:00: 00 Yes TAKE 1 TABLET (500 MG TOTAL) BY MOUTH IN THE MORNING AND 1 TABLET IN THE EVENING WITH MEALS Natalya choudhary Ketoconazol e 2 % Ketoconazol e 2 % No 1{appli cation_ to_affe cted_ar ea} QD Ketoconazo le 2 % Fenofibrate 48 MG Fenofibrate 48 MG No 1{table t} Fenofibrat e 48 MG Pravastatin Sodium 20 mg Pravastatin Sodium 20 mg No 1{table t} QD Pravastati n Sodium 20 mg Amerge 2.5 MG Amerge 2.5 MG No Amerge 2.5 MG atorvastati n 10 mg tablet TAKE 1 TABLET BY MOUTH EVERY DAY AT NIGHT atorvastati n 10 mg tablet TAKE 1 TABLET BY MOUTH EVERY DAY AT NIGHT No atorvastat in 10 mg tablet TAKE 1 TABLET BY MOUTH EVERY DAY AT NIGHT [facility] cholecalcif emmanuelle (vitamin D3) 1,250 mcg (50,000 unit) capsule TAKE 1 CAPSULE BY MOUTH ONE TIME PER WEEK cholecalcif emmanuelle (vitamin D3) 1,250 mcg (50,000 unit) capsule TAKE 1 CAPSULE BY MOUTH ONE TIME PER WEEK No cholecalci ferol (vitamin D3) 1,250 mcg (50,000 unit) capsule TAKE 1 CAPSULE BY MOUTH ONE TIME PER WEEK [facility] Fish Oil Fish Oil No Fish Oil [facility] ketoconazol e 2 % shampoo LATHER SCALP. LET IT SIT FOR 2-3 MINUTES. RINSE. X2-3 WEEKLY ketoconazol e 2 % shampoo LATHER SCALP. LET IT SIT FOR 2-3 MINUTES. RINSE. X2-3 WEEKLY No ketoconazo le 2 % shampoo LATHER SCALP. LET IT SIT FOR 2-3 MINUTES. RINSE. X2-3 WEEKLY [facility] metformin 500 mg tablet TAKE 2 TABLETS (1,000 MG TOTAL) BY MOUTH IN THE MORNING AND IN THE EVENING WITH MEALS metformin 500 mg tablet TAKE 2 TABLETS (1,000 MG TOTAL) BY MOUTH IN THE MORNING AND IN THE EVENING WITH MEALS No metformin 500 mg tablet TAKE 2 TABLETS (1,000 MG TOTAL) BY MOUTH IN THE MORNING AND IN THE EVENING WITH MEALS [facility] Multi Vitamin Multi Vitamin No Multi Vitamin [facility] Prescriptio n - Clarificati on Prescriptio n - Clarificati on No Prescripti on - Clarificat ion [facility] spironolact one 100 mg tablet TAKE 1 TABLET BY MOUTH EVERY DAY spironolact one 100 mg tablet TAKE 1 TABLET BY MOUTH EVERY DAY No spironolac tone 100 mg tablet TAKE 1 TABLET BY MOUTH EVERY DAY [facility] Pravastatin Sodium 20 mg Pravastatin Sodium 20 mg No 1{table t} QD Pravastati n Sodium 20 mg Vitamin D Vitamin D No Vitamin D Fenofibrate 48 MG Fenofibrate 48 MG No 1{table t} Fenofibrat e 48 MG metFORMIN HCl 500 MG metFORMIN HCl 500 MG No 1{table t_with_ a_meal} BID metFORMIN HCl 500 MG Spironolact one 25 MG Spironolact one 25 MG No QD Spironolac tone 25 MG Amerge 2.5 MG Amerge 2.5 MG No Amerge 2.5 MG Ketoconazol e 2 % Ketoconazol e 2 % No 1{appli cation_ to_affe cted_ar ea} QD Ketoconazo le 2 % Pravastatin Sodium 40 MG Pravastatin Sodium 40 MG No 1{table t} Pravastati n Sodium 40 MG Pravastatin Sodium 40 MG Pravastatin Sodium 40 MG No 1{table t} Pravastati n Sodium 40 MG Vitamin D Vitamin D No Vitamin D Vital Signs Vital Name Observation Time Observation Value Comments S ource Height 2024-06-11 00:00:00 67.5 [in_i] [facility] Body Weight 2024-06-11 00:00:00 354.4 [lb_av] [facility] BP Diastolic 2024-06-11 00:00:00 110 mm[Hg] [facility] BMI (Body Mass Index) 2024-06-11 00:00:00 54.7 kg/m2 [facility] BP Systolic 2024-06-11 00:00:00 136 mm[Hg] [facility] Systolic blood pressure 2022-08-08 17:13:00 122 mm[Hg] Natalya Spivey ld - External Diastolic blood pressure 2022-08-08 17:13:00 82 mm[Hg] Natalya Spivey ld - External Heart rate 2022-08-08 17:13:00 76 /min Kaitlin Cho - External Body temperature 2022-08-08 17:13:00 36.28 Irene Natalya Felizybbinaca - External Respiratory rate 2022-08-08 17:13:00 15 /min Natalya Felizybold - External Body height 2022-08-08 17:13:00 170.2 cm Arlin paredes Seybold - External Body weight 2022-08-08 17:13:00 153.316 kg Arlin paredes Seybold - External BMI 2022-08-08 17:13:00 52.94 kg/m2 Arlin paredes Seybold - External height 2021-11-15 16:30:00 67.50 [in_i] Com [facility] weight 2021-11-15 16:30:00 311.4 [lb_av] [facility] temperature 2021-11-15 16:30:00 97.9 [degF] Com [facility] bmi 2021-11-15 16:30:00 48.05 kg/m2 Comm on [facility] oximetry 2021-11-15 16:30:00 98 % Com[facility] respiratory rate 2021-11-15 16:30:00 18 /min [facility] blood pressure systolic 2021-11-15 16:30:00 138 mm[Hg] [facility] pressure diastolic 2021-11-15 16:30:00 76 mm[Hg] Common [facility] height 2021-08-02 16:40:00 67.50 [in_i] Com [facility] weight 2021-08-02 16:40:00 300 [lb_av] Comm on [facility] temperature 2021-08-02 16:40:00 98 [degF] Comm on [facility] bmi 2021-08-02 16:40:00 46.29 kg/m2 Comm on [facility] height 2021-05-02 11:00:00 67.50 [in_i] Com [facility] weight 2021-05-02 11:00:00 300 [lb_av] Comm on [facility] temperature 2021-05-02 11:00:00 97.5 [degF] Com mon [facility] bmi 2021-05-02 11:00:00 46.29 kg/m2 Comm on [facility] blood pressure systolic 2021-05-02 11:00:00 125 mm[Hg] [facility] blood pressure diastolic 2021-05-02 11:00:00 74 mm[Hg] [facility] Procedures Procedure Date / Time Performed Performing Clinicia n Source MAMMO, screening, digital, bilateral 2024-06-11 00:00:00 [facility] Hysterectomy 2020-08-04 00:00:00 [facility] Hysteroscopy 2020-06-30 00:00:00 [facility] Excision of Varicose Vein 2016-07-22 00:00:00 [facility] Cryotherapy of Cervix 2004-07-22 00:00:00 [facility] Cholecystectomy (Gallbladder) [facility] Encounters Start Date/Time End Date/Time Encounter Type Admission Type Attending Clinicians Care Facility Care Department Encounter ID Source 2023-11-12 15:37:00 Outpatient Danisha Reyes [facility] [id number] [facility] 2023-11-08 11:49:00 Outpatient Holger [facility] [id number] [facility] 2021-11-16 07:54:02 Outpatient Wren, [facility] [id number] [facility] 2021-08-16 14:00:39 Outpatient Wren, [facility] [id number] [facility] 2021-08-16 13:59:55 [id number] [facility] 2021-08-16 13:23:54 Outpatient Wren, [facility] [id number] [facility] 2021-08-16 13:22:43 [facility] [id number] [facility] 2021-08-16 13:08:25 [facility] [id number] [facility] 2021-08-16 12:58:52 Outpatient Wren, [facility] [id number] [facility] 2021-08-16 12:57:19 Outpatient Wren, [facility] [id number] [facility] 2020-08-02 15:00:00 Inpatient Alena Lott HCAPM SANCHEZ [id number] [facility] 2020-06-30 13:45:00 Inpatient Alena Merida HCAPM SANC[facility]Z [id number] 26 [facility] 2024-06-29 00:00:00 2024-06-29 00:00:00 Outpatient JOSE JUAN [id number] [facility] Cho 2024-06-11 00:00:00 2024-06-11 00:00:00 Nimisha Rodriguez, MEMS PROCESS ENGINEER: [address], [place] [address], [place] [address] , Ph. [facility] - [email or web address] [facility]* [id number] [facility] 2024-02-13 00:00:00 2024-02-13 00:00:00 Outpatient JOSE JUAN [id number] Natal[facility] Cho 2023-12-23 00:00:00 2023-12-23 00:00:00 Outpatient PREZAS, JOSE TRACEY [facility] [id number] [facility]:00:00 2023-11-12 00:00:00 [facility]EL[facility] [id number] 2023-09-26 00:00:00 2023-09-26 00:00:00 Outpatient PREZAS, JOSE NATALYA TRACEY [id number] [facility] 2023-09-24 00:00:00 2023-09-24 00:00:00 Outpatient PREZAS, JOSE NATALYA TRACEY [id number] [facility] 2023-09-23 00:00:00 2023-09-23 00:00:00 Outpatient PREZAS, JOSE NATALYA TRACEY [id number] [facility] 2023-09-14 00:00:00 2023-09-14 00:00:00 Outpatient PREZAS, JOSE NATALYA TRACEY [id number] [facility] 2023-09-13 00:00:00 2023-09-13 00:00:00 Outpatient PREZAS, JOSE NATALYA TRACEY [id number] [facility] 2023-07-19 00:00:00 2023-07-19 00:00:00 Outpatient PREZAS, JOSE NATALYA TRACEY [id number] [facility] 2023-07-02 00:00:00 2023-07-02 00:00:00 Outpatient PREZAS, JOSE NATALYA TRACEY [id number] [facility] 2023-06-04 00:00:00 2023-06-04 00:00:00 Outpatient PREZAS, JOSE NATALYA TRACEY [id number] [facility] 2023-06-03 00:00:00 2023-06-03 00:00:00 Outpatient GC_GCBZW_Ka diyala_S PRIV PRIV [id number] [facility] 2023-05-28 00:00:00 2023-05-28 00:00:00 Outpatient GC_GCBZW_Ka diyala_S PRIV PRIV [id number] [facility] 2023-05-21 00:00:00 2023-05-21 00:00:00 Outpatient GC_GCBZW_Ka diyala_S PRIV PRIV [id number] [facility] 2023-05-20 00:00:00 2023-05-20 00:00:00 Outpatient GC_GCBZW_Ka diyala_S PRIV PRIV [id number] [facility] 2023-02-23 00:00:00 2023-02-23 00:00:00 Outpatient PREZAS, JOSE TRACEY [id number] [facility] 2023-02-14 08:30:00 2023-02-14 08:30:00 Outpatient PREZAS, JOSE TRACEY [id number] [facility] 2023-02-07 08:00:00 2023-02-07 08:00:00 Outpatient PREZAS, JOSE TRACEY [id number] [facility] 2023-02-05 08:00:00 2023-02-05 08:00:00 Outpatient PREZAS, JOSE TRACEY [id number] [facility] 2023-01-16 00:00:00 2023-01-16 00:00:00 Outpatient PREZAS, JOSE TRACEY [id number] [facility] 2022-11-24 00:00:00 2022-11-24 00:00:00 Outpatient PREZAS, JOSE TRACEY [id number] [facility] 2022-10-08 08:30:00 2022-10-08 08:30:00 Outpatient PREZAS, JOSE TRACEY [id number] [facility] 2022-08-28 00:00:00 2022-08-28 00:00:00 Outpatient PREZAS, JOSE TRACEY [id number] [facility] 2022-08-09 00:00:00 2022-08-09 00:00:00 Outpatient PREZAS, JOSE TRACEY [id number] [facility] 2022-08-08 12:00:00 2022-08-08 12:00:00 Outpatient LAB90 NATALYA TRACEY [id number] [facility] 2022-08-08 11:30:00 2022-08-08 11:30:00 Outpatient PREZAS, JOSE TRACEY [id number] [facility] 2022-07-25 00:00:00 2022-07-25 00:00:00 Outpatient PREZAS, JOSE TRACEY [id number] [facility] 2022-07-13 08:00:00 2022-07-13 08:00:00 Outpatient PREZAS, JOSE TRACEY [id number] [facility] 2022-06-28 00:00:00 2022-06-28 00:00:00 Outpatient PREZAS, JOSE TRACEY [id number] Natalya [facility] 2022-06-20 00:00:00 2022-06-20 00:00:00 Outpatient PREZAS, JOSE MASTSEY [id number] Natal[facility] 2022-04-13 00:00:00 2022-04-13 00:00:00 Outpatient PREZAS, JOSE TRACEY NATALYA [id number] [facility] 2022-04-11 00:00:00 2022-04-11 00:00:00 Outpatient PREZAS, JOSE TRACEY [id number] [facility] 2022-04-11 00:00:00 2022-04-11 00:00:00 Outpatient PREZAS, JOSE TRACEY NATALYA [id number] Natal[facility] 2022-04-10 10:00:00 2022-04-10 10:00:00 Outpatient LAB90 NATALYA TRACEY [id number] [facility] 2022-04-10 09:15:00 2022-04-10 09:15:00 Outpatient PREZAS, JOSE TRACEY NATALYA [id number] Natalya [facility] 2022-02-06 10:30:00 2022-02-06 10:30:00 Telemedici ne JOSE JUAN [id number] [facility] 2022-02-05 00:00:00 2022-02-05 00:00:00 Outpatient JOSE JUAN [id number] [facility] 2022-02-05 00:00:00 2022-02-05 00:00:00 Outpatient JOSE JUAN [id number] [facility] 2022-02-02 00:00:00 2022-02-02 00:00:00 (TEL) STLMLC STLMLC [id number] [facility] 2021-11-15 00:00:00 2021-11-15 00:00:00 PREV VISIT EST AGE 40-64 STLMLC STLMLC [id number] [facility] 2021-08-02 00:00:00 2021-08-02 00:00:00 OFFICE VISIT EST PT LEVEL 3 STLMLC STLMLC [id number] [facility] 2021-05-02 00:00:00 2021-05-02 00:00:00 OFFICE VISIT EST PT LEVEL 3 STLMLC STLMLC [id number] [facility] 2021-01-25 00:00:00 2021-01-25 00:00:00 Outpatient STLMLC STLMLC [id number] [facility] 2020-12-15 00:00:00 2020-12-15 00:00:00 Outpatient STLMLC STLMLC [id number] [facility] 2020-11-16 00:00:00 2020-11-16 00:00:00 Outpatient STLMLC STLMLC [id number] [facility] Results Test Description Test Time Test Comments Results Result Co mments Source [id number] 13:21:00* Test Item Value Reference Range Interpretation Comme nts CYTOLOGY (test code = CYTO) RUN DATE: 08/09/20 [facility] PAGE 1 RUN TIME: 1321 Specimen Inquiry RUN USER: INTERFACE PATIENT: GARY CROOKS LOC: JANES U #: [id number] AGE/SX: 45/F ROOM: RE08/04/20REG DR: Alena Merida : 79 BED: DIS: STATUS: [facility] [facility] [place]: SPEC #: [id number] RECD: 08/05/20 STATUS: KARL ZAVALA #: [id number] JANAE: 08/04/[address]: Alena Merida MD ENTERED: 08/05/20 SP TYPE: CYTOLOGY OTHR DR: No Primary or Family PhysicianORDERED: JOSE SUREPATH COPIES TO: No Primary or Family Physician Alena Merida MD [address] [place] [id number] HISTOLOGY: TISSUE ID BLK PCS SHILOH LEV PROCEDURE DISPOSITION ____ ___ ___ ___ PELVIS, NOS A 1 2 PROCEDURES: CB (08/05/20-1348) SUREPATH (08/05/20-1348) TISSUES: A. PELVIS, NOS - PELVIC WASHING CPT CODES CPT CODE(S): 51605 , 30829 , , , , , FINAL DIAGNOSIS Pelvic washing: ACELLULAR SPECIMEN NONDIAGNOSTIC GROSS DESCRIPTION Pelvic washing. Received are approximately 72 mL of clear fluid. One thin-layer slide and a cell block are prepared from the fluid and submitted for Pap stain and H E stain, respectively. /ms Grossing performed at [facility] Pathology, [facility], [address], [place] [address]. Plexiglas Former: Wilfredo Bello M.D. CONTINUED ON NEXT PAGE RUN DATE: 08/09/20 [facility] PAGE 2 RUN TIME: 1321 Specimen Inquiry RUN USER: INTERFACE SPEC #: [id number] PATIENT: GARY CROOKS #[id number] (Continued) --- MICROSCOPIC DESCRIPTION Pelvic washing. Thin-layer and cell block slides are reviewed. Slides are virtually acellular. Nondiagnostic. /shawn Signed SIGNATURE ON FILE Scott Oliveira 08/09/20 1321 END OF REPORT [id number] 21:12:00* Test Item Value Reference Range Interpretation Comme nts CREATININE (test code = CREAT) 0.9 MG/DL 0.6-1.0 N COVID 19 INHOUSE [id number] 16:02:00* Test Item Value Reference Range Interpretation Comme nts COVID 19 INHOUSE AG (test code = [id number]) NEGATIVE Negative Per environment coordinator , negative results should be treated aspresumptive and, if inconsistent with clinical signs andsymptoms or necessary for patient management, should betested with an alternative molecular assay. Negative resultsdo not preclude SARS-CoV-2 infection and should not be usedas the sole basis for patient management decisions. Negative results should be considered in the context of apatient's recent exposures, history, presence of clinicalsigns and symptoms consistent with COVID-19. CBC W/AUTO [id number] 16:01:00* Test Item Value Reference Range Interpretation Comme nts WHITE BLOOD CELL (test code = WBC) 7.7 K/mm3 3.5-11.0 N RED BLOOD CELL (test code = RBC) 4.71 M/mm3 4.70-6.10 N HEMOGLOBIN (test code = HGB) 14.6 G/DL 10.4-14.9 N HEMATOCRIT (test code = HCT) 44.1 % 31.5-44.1 N MEAN CELL VOLUME (test code = MCV) 93.6 Fl 84.5-98.6 N MEAN CELL HGB (test code = MCH) 31.0 pg 27.0-34.2 N MEAN CELL HGB CONCETRATION (test code = MCHC) 33.1 G/DL 31.5-34.0 N RED CELL DISTRIBUTION WIDTH (test code = RDW) 13.5 SD 11.5-14.5 N PLATELET COUNT (test code = PLT) 268 K/mm3 150-450 N MEAN PLATELET VOLUME (test c ode = MPV) 9.60 fL 7.0-10.5 N NEUTROPHIL % (test code = NT%) 56.6 % 40-76 N IMMATURE GRANULOCYTE % (test code = IG%) 0.1 % 0.0-5.0 N LYMPHOCYTE % (test code = LY%) 34.8 % 20.5-51.1 N MONOCYTE % (test code = MO%) 5.4 % 1.7-9.3 N EOSINOPHIL % (test code = EO%) 2.5 % 0.0-6.0 N BASOPHIL % (test code = BA%) 0.6 % 0.0-2.0 N NUCLEATED RBC % (test code = NRBC%) 0.0 /100WBC% 0.0-1.0 N NEUTROPHIL # (test code = NT#) 4.4 K/mm3 1.8-7.6 N IMMATURE GRANULOCYTE # (test code = IG#) 0.01 x10 3/uL 0.00-0.03 N LYMPHOCYTE # (test code = LY#) 2.7 K/mm3 0.6-3.2 N MONOCYTE # (test code = MO#) 0.4 K/mm3 0.3-1.1 N EOSINOPHIL # (test code = EO#) 0.2 K/mm3 0.0-0.4 N BASOPHIL # (test code = BA#) 0.1 K/mm3 0.0-0.1 N NUCLEATED RBC # (test code = NRBC#) 0.0 K/mm3 0.0-0.1 N MANUAL DIFF REQUIRED (test c ode = MDIFF) NO DIFF/SCN CRITERIA HCG SERUM [id number] 15:49:00* Test Item Value Reference Range Interpretation Comme nts HCG SERUM QUAL (test code = HCGQL) SERUM NEGATIVE SCREEN NEGATIVE [id number] 13:55:00* Test Item Value Reference Range Interpretation Comme nts SURG (test code = SURG) --------RUN DATE: 07/01/20 [facility] PAGE 1 RUN TIME: 1355 Specimen Inquiry RUN USER: INTERFACE --------PATIENT: GARY CROOKS LOC: [facility] U #: [id number] AGE/SX: 45/F ROOM: RE06/30/20[facility] DR: Alena Merida : 79 BED: DIS: STATUS: CANDACE LEON TLOC: -------- SPEC #: [id number] RECD: 06/30/20 STATUS: KARL ZAVALA #: [id number] JANAE: 06/30/[address]: Alena Merida MD ENTERED: 06/30/20 SP TYPE: SURG OTHR DR: No Primary or Family PhysicianORDERED: SURG PATH LVL 4 COPIES TO: No Primary or Family Physician Alena Merida MD [address] [place] [id number] HISTOLOGY: TISSUE ID BLK PCS SHILOH LEV PROCEDURE DISPOSITION ____ ___ ___ ___ ENDOMETRIAL CAV A 1 1 PROCEDURES: SURG PATH LVL 4 (06/30/20) TISSUES: A. 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 Received in formalin are multiple fragments of pink-tyson soft tissue, 2.2 x 2.0 x 0.3 cm in aggregate. The entire specimen submitted as A1 and A2. ba/nr Grossing performed at [facility] Pathology, [address] [place] [address], [address], [place] [address]. [employer]lex[place] Former: Wilfredo Bello M.D. CONTINUED ON NEXT PAGE --------RUN DATE: 07/01/20 [facility] PAGE 2 RUN TIME: 1355 Specimen Inquiry RUN USER: INTERFACE --------SPEC #: [facility]:[id number] PATIENT: GARY CROOKS #[id number] (Continued) MICROSCOPIC DESCRIPTION Endometrial curettage. Sections demonstrate [...] Signed SIGNATURE ON FILE Manuel Cheney 07/01/20 1355 -------- END OF REPORT HCG SERUM [id number] 11:28:00* Test Item Value Reference Range Interpretation Comme nts HCG SERUM QUAL (test code = HCGQL) SERUM NEGATIVE SCREEN NEGATIVE COVID 19 INHOUSE [id number] 11:24:00* Test Item Value Reference Range Interpretation Comme nts COVID 19 INHOUSE AG (test code = [id number]) NEGATIVE Negative Per environment coordinator , negative results should be treated aspresumptive and, if inconsistent with clinical signs andsymptoms or necessary for patient management, should betested with an alternative molecular assay. Negative resultsdo not preclude SARS-CoV-2 infection and should not be usedas the sole basis for patient management decisions. Negative results should be considered in the context of apatient's recent exposures, history, presence of clinicalsigns and symptoms consistent with COVID-19. CBC W/AUTO [id number] 11:16:00* Test Item Value Reference Range Interpretation Comme nts WHITE BLOOD CELL (test code = WBC) 7.6 K/mm3 3.5-11.0 N RED BLOOD CELL (test code = RBC) 4.59 M/mm3 4.70-6.10 L HEMOGLOBIN (test code = HGB) 14.2 G/DL 10.4-14.9 N HEMATOCRIT (test code = HCT) 42.5 % 31.5-44.1 N MEAN CELL VOLUME (test code = MCV) 92.6 Fl 84.5-98.6 N MEAN CELL HGB (test code = MCH) 30.9 pg 27.0-34.2 N MEAN CELL HGB CONCETRATION (test code = MCHC) 33.4 G/DL 31.5-34.0 N RED CELL DISTRIBUTION WIDTH (test code = RDW) 13.8 SD 11.5-14.5 N PLATELET COUNT (test code = PLT) 242 K/mm3 150-450 N MEAN PLATELET VOLUME (test c ode = MPV) 9.60 fL 7.0-10.5 N NEUTROPHIL % (test code = NT%) 55.5 % 40-76 N IMMATURE GRANULOCYTE % (test code = IG%) 0.3 % 0.0-5.0 N LYMPHOCYTE % (test code = LY%) 31.5 % 20.5-51.1 N MONOCYTE % (test code = MO%) 8.7 % 1.7-9.3 N EOSINOPHIL % (test code = EO%) 3.3 % 0.0-6.0 N BASOPHIL % (test code = BA%) 0.7 % 0.0-2.0 N NUCLEATED RBC % (test code = NRBC%) 0.0 /100WBC% 0.0-1.0 N NEUTROPHIL # (test code = NT#) 4.2 K/mm3 1.8-7.6 N IMMATURE GRANULOCYTE # (test code = IG#) 0.02 x10 3/uL 0.00-0.03 N LYMPHOCYTE # (test code = LY#) 2.4 K/mm3 0.6-3.2 N MONOCYTE # (test code = MO#) 0.7 K/mm3 0.3-1.1 N EOSINOPHIL # (test code = EO#) 0.3 K/mm3 0.0-0.4 N BASOPHIL # (test code = BA#) 0.1 K/mm3 0.0-0.1 N NUCLEATED RBC # (test code = NRBC#) 0.0 K/mm3 0.0-0.1 N MANUAL DIFF REQUIRED (test c ode = MDIFF) NO DIFF/SCN CRITERIA Notes Date/Time Note Provider Source 2020-08-14 22:39:00 [id number] [place] [address] PATIENT NAME: GARY CROOKS ADMIT DATE: 08/04/20 ACCOUNT NO: [id number] ROOM NO: AGE: 45 REPORT TYPE: OPERATIVE REPORT SEX: F ADMITTING PHYSICIAN: ATTENDING PHYSICIAN: Alena Merida MD OPERATION DATE: 08/04/2020 PREOPERATIVE DIAGNOSES: Endometrial hyperplasia with atypia, endometriosis of the uterus (AUB-A), menorrhagia. POSTOPERATIVE DIAGNOSES: Endometrial hyperplasia with atypia, endometriosis of the uterus (AUB-A), menorrhagia. PROCEDURES PERFORMED: Total laparoscopic hysterectomy, bilateral salpingectomy, and pelvic washings. ANESTHESIA: General endotracheal. SURGEON: Alena Merida MD MACHINE STRIPER: Luisa Patel, the respiratory therapy assistant. If the name of the respiratory therapy assistant is different, please refer to my short op note. ESTIMATED BLOOD LOSS: Minimal. COMPLICATIONS: No complications. DRAINS: None. SPECIMENS: Uterus, bilateral tubes, pelvic washings. CONDITION: The patient's condition is stable. FINDINGS: The uterus was found to be anteflexed. Ovaries appeared to be completely unremarkable. Both tubes were well visualized. No evidence of any other endometriosis was noted. Pelvic washings were obtained. Omentum, upper abdominal surfaces, all peritoneal surfaces were unremarkable. ____ of the uterus was unremarkable. INDICATIONS: The patient is a 45-year-old 0, who presented with heavy bleeding. She was evaluated with a transvaginal ultrasound. The tripe appeared to be within normal limits. As the patient was overweight and has risks for endometrial atypia, we decided to perform endometrial sampling with endometrial biopsy specimen retriever. Once this was done, there was endometrium with focal atypia. This pathology was done at ____. So, it was read as focal complex hyperplasia with atypia and squamous metaplasia arising in the background of PATIENT NAME: GARY CROOKS disordered proliferative endometrium. As the biopsy was retrieved with Pipelle without visualization of the uterine cavity, she was taken for hysteroscopy and visualized. The entire cavity was unremarkable. The cavity was curetted thoroughly and the specimen did not show any atypia or malignancy on that specimen. We discussed about the pathology report. We discussed about the presence of atypia and very high risk of progression to cancer, also coincidental diagnosis of endometrial cancer usually early since the patient was 2 and was initially interested in not preserving her fertility, now has changed her mind that she was very sure she did not want to proceed with any type of medical treatment options we discussed about the LNG-IUS as well as high dose progesterone therapy and consultation with a [employer] oncologist as well as infertility specialist. After contemplating, the patient decided that she wanted to proceed with hysterectomy and preservation of the ovaries was recommended as there is pathology that warrants complete removal of ovaries and staging. She understood that she would go back and get a staging procedure if that pathology turned out to be to be positive for cancer that is more than stage 1B. PROCEDURE IN DETAIL: After informed consent was verified, she was taken back to the OR and based on the ____ recommendation, she got Ancef 3 grams and she was taken back to the OR, placed in supine position on the operating table. General anesthesia was given, placed in dorsal lithotomy position. Arms were tucked by the side and pelvic exam was performed. Abdomen, vulva, vagina, and perineum prepped and draped in sterile fashion. Mitchell placed to drain the bladder and attached to a retrograde filling and a medium VCare introduced into the uterus and fixed in place. This area was then draped. 1 cm infraumbilical incision made with scalpel using open laparoscopy technique, though the fascia was a deep, incision was made directly ____ and the Elie clamps were placed on each side, each edge was sutured with 0 Vicryl sutures on both sides and peritoneum entered sharply. S retractors placed, Josiah introduced. Site of entry checked unremarkable. After examining the upper abdominal survey completely and closely, no evidence of any abnormal implant. The patient was placed in Trendelenburg and the evaluation of the anterior abdominal wall was done. The uterus appeared to be free. No evidence of any masses or abnormalities. No evidence of any endometriosis. Ovaries were completely unremarkable Tubes noted and no distortion of the anatomy of the ureters. 1 cm suprapubic incision to the left and right lower quadrant, 5 ports were placed and for retraction about 3-0 Monocryl were placed on the epiploicae of the sigmoid colon and pulled out with the Rafi-Spaulding needle in left upper quadrant for retraction, held on hemostat. Then, hysterectomy was started after doing pelvic washings. These were retrieved and then started taking the left tube, mesosalpinx, round ligament, utero-ovarian ligament and draped in the anterior lip of the bladder flap going all the way over. There was significant amount of adhesions in the anterior pelvic, peritoneum though the bladder would not be dissected easily. Once identifying the bladder, no evidence of any masses or tumor was noted. This just appeared to be somewhat of dense adhesive endometriosis like scarring. Given the presence of a suspicion of adenomyosis in this patient, this could be possible that implants were not discretely seen. Then, dissection was carried to dissect the posterior peritoneum all the way to PATIENT NAME: GARY CROOKS the left uterosacral ligament. Once this was done, the round ligament was taken down. The vessels were skeletonized. It was slightly difficult to completely see the area of the bladder here. Once the bladder muscle was dissected off the anterior vaginal wall on the left side and went back to the other side, the tube was detached. The utero-ovarian ligament, mesosalpinx and round ligament were all taken down. Anterior broad ligament connected for a bladder flap, then similarly on the opposite side. Adhesions and scarring was seen. Bladder was filled and drained to parvez its margins. Once this was done, the bladder was dissected inferiorly, then the posterior peritoneum taken down. The broad ligament was taken down to expose the vessels. The vessels were taken down with the help of the bipolar paddle tip. Once this was done, then the LigaSure was used to take down the vessels. Then, the cardinal ligaments were taken down and on the opposite side, the vessels and cardinal ligaments were taken down. A circumferential colpotomy with the monopolar hook blade was performed and then specimen pulled out through the vagina. Once this was done, thorough irrigation and suction was performed. The bladder was looked at and 3-0 Vicryl suture was placed in a [id number] fashion in order for me to close the area that appeared to be slightly disruptive on the detrusor muscle. No evidence of any leak. No evidence of any full-thickness injury. The oversew just to make sure that this area healed itself. Then, two simple, 0 Vicryl sutures were placed on both ends of the vaginal cuff and three figure of eight were placed in the center. Good apposition was seen. Good support and the fascial reapproximation of the anterior and posterior wall to avoid any prolapse and the ligaments were suspended to the apex anyway, so that was la good level 1 support. Thorough irrigation and suction of all the pedicles was done and the ureters and no evidence of electrical, mechanical or thermal injury to them. Then, I pulled the scope back. All the trocars were removed. Gas was desufflated. The epiploica were released and the Monocryl removed. The injection at skin and fascia was done at the entry and exit of all the ports, then the fascial incision at the umbilicus was closed. gas was completely desufflated and the Josiah was removed. Tag sutures of 0 Vicryl were tagged to each other to close this incision there and a simple 0 Vicryl stitch and the deep connective tissue was very difficult to access the peritoneum and the fascia at the suprapubic site. All skin incisions with interrupted 4-0 Monocryl sutures and then the strips were placed. Instrument and sponge counts were correct at the end of the case. Vaginal sponge for retraction was removed. Cystoscopy was performed with 17-[place]er sheath 30-degree lens normal saline. Excellent jets of urine from both ureteral orifices. No evidence of any trauma to the bladder area above the trigone, trigone, lateral gaffney and dome. No blood and the urine was clear. Mitchell was left out after draining the bladder, Again, the vaginal sponge was removed. Instrument and sponge counts were correct at the end of the case. The patient tolerated the procedure well. She was extubated in the OR and taken to PACU in stable condition. Discharged on the same day. She has an appointment in 1 week and she has all instructions refer to regular diet and ambulation. Dictated By: Alena Merida MD WT: OP:PASCUAL/LIN/ATTILA PATIENT NAME: GARY CROOKS Conf#: [id number]/DID#: [id number] Authenticated and Edited by Alena Merida MD On 08/21/20 9:49:19 AM at 0951 PATIENT NAME: GARY CROOKS [facility] 2020-08-04 10:10:00 [facility] ([facility] Brief Op Note REPORT#:[id number] REPORT STATUS: Signed DATE:08/04/20 TIME:1010 PATIENT: GARY CROOKS UNIT #: [id number] ROOM/BED: : 77 AGE: 45 SEX: F ATTEND: Alena Merida MD ADM AUTHOR: Alena Merida MD * ALL edits or amendments must be made on the electronic/computer document * Op/Inv Proc Note - Brief Pre-procedure diagnosis: EIN, AUB-O Post-procedure diagnosis: same as pre procedure dx Procedures performed: TLH BS, cystoscopy, difficult procedure due to dense adhesions in anterior and posterior CDS, endometriosis excision Primary Surgeon: [employer] Adviser(s): Rebekah Knight Anesthesia: general anesthesia Findings: normal Complications: none Estimated blood loss in ml's: minimal<50 Specimens removed/altered: none (uterus tubes, pelvic washings), uterus tubes, endometriosis on left lateral posterior uterine specimen margin; short segment of left tube (proximal segment), distal segment left tube with paratubal cysts, one long right tubal segment Drain(s): None Approach: laparoscopic Wound class: clean-contaminated at 1345 RPT #: [id number] END OF REPORT [facility] 2020-06-30 10:23:00 [id number] [facility] [id number] [place] [address] PATIENT NAME: GARY CROOKS ADMIT DATE: 06/30/20 ACCOUNT NO: [id number] ROOM NO: AGE: 45 REPORT TYPE: OPERATIVE REPORT SEX: F ADMITTING PHYSICIAN: ATTENDING PHYSICIAN: Alena Merida MD OPERATION DATE: 06/30/2020 PREOPERATIVE DIAGNOSIS: Abnormal uterine bleeding due to endometrial atypia. POSTOPERATIVE DIAGNOSIS: Abnormal uterine bleeding due to endometrial atypia. PROCEDURE PERFORMED: Diagnostic hysteroscopy, resection of the endometrium or D and C with the MyoSure Lite. SURGEON: Alena Merida MD ASSISTANTS: None. SPECIMENS: Endometrial curettings. ANESTHESIA: General anesthesia with LMA. COMPLICATIONS: No complications. DRAINS: None. CONDITION: The patient's condition is stable. ESTIMATED BLOOD LOSS: Minimal. FINDINGS: Endometrium appeared to be irregular in the posterior wall and right lateral wall. No intracavitary masses were noted. Adequate sample was retrieved. INDICATIONS: The patient is a 45-year-old female with heavy bleeding. Transvaginal ultrasound was performed. Thickened endometrium was noted. Endometrial biopsy with a Pipelle in the office was performed. The pathology returned as focal atypia with endometrial hyperplasia. No endometrial adenocarcinoma was noted. We discussed the pathology results with the patient. Since a blind biopsy was performed, we want to make sure that the endometrial cavity was visualized and adequate sampling under visualization was performed to rule out any existing detectable endometrial adenocarcinoma. The patient does have risk factors for this. She is heavyset. So she was consented and brought to the hospital for hysteroscopy and D and C with MyoSure Lite. PROCEDURE IN DETAIL: After informed consent was re-verified in the hospital, she was taken back to the OR. General anesthesia was given. She was placed in PATIENT NAME: GARY CROOKS dorsal lithotomy position using Franky stirrups. Pelvic exam was performed. Then the vulva, vagina, and perineum prepped and draped in sterile fashion. Speculum placed to expose the cervix. Cervix was dilated to 16-[place]er. Then, the MyoSure scope was taken and using diagnostic sheath went in to visualize the endometrial cavity. The cavity was empty. Endometrium lining appeared to be irregular in the posterior gaffney and the right lateral wall most prominently. No other cavitary masses were seen. Both tubal ostia visualized and entire cavity was well visualized. The resection device was then inserted through the scope and the thinner resection device was used to perform an adequate endometrial sampling procedure of all gaffney of the endometrial cavity. Once this was done adequately, then the scope was removed as well as the resection device. Instrument, needle, and sponge counts were correct at the end of the case. The patient tolerated the procedure well. She got 30 mg of Toradol. She was recovered from anesthesia in the OR, had strong spell of coughing with a lot of mucus production. Her history with being a smoker, possibly underlying bronchitis. She will be admitted and she will be observed. Her sats were stable. Recovered from the OR and brought to the PACU in stable condition. She will be discharged today. She has all instructions for discharge and has a followup appointment in 1 week for pathology review. She understands the plan that if this is atypia confirmed even on this sampling, then we will proceed with a hysterectomy and bilateral salpingectomy. If there is endometrial adenocarcinoma detected, she will be referred to a gynecologic oncologist. Her mother was called to give her an update after the procedure. Dictated By: Alena Merida MD WT: OP:PASCUAL/LIN/ATTILA Conf#: [id number]/DID#: [id number] Authenticated and Edited by Alena Merida MD On 07/07/20 4:04:43 PM at 1606 PATIENT NAME: GARY CROOKS [facility] 2020-06-30 10:10:00 [facility] ([facility]) Brief Op Note REPORT#:[id number] REPORT STATUS: Signed DATE:06/30/20 TIME:1010 PATIENT: GARY CROOKS UNIT #: [id number] ROOM/BED: : 77 AGE: 45 SEX: F ATTEND: Alena Merida MD ADM AUTHOR: Alena Merida MD * ALL edits or amendments must be made on the electronic/computer document * Op/Inv Proc Note - Brief Pre-procedure diagnosis: EIN, AUB-O Post-procedure diagnosis: same as pre procedure dx Procedures performed: Hysteroscopy D c with myosure lite Primary Surgeon: [employer] Adviser(s): none Anesthesia: general anesthesia, monitored anes. care (LMA) Findings: irregular endometrium, posterior adn right lateral wall, no masses, adequate sampling Complications: none Estimated blood loss in ml's: none Specimens removed/altered: endometrial curettings Drain(s): None Approach: Hysteroscopic Disposition: stable Dictation number: [id number] at 1024 RPT #: [id number] END OF REPORT [facility]
--- NOTE | 2024-11-12 14:26 | RAD REPORT ---
EXAM: Chest Single View HISTORY: 49 years Female COUGH COMPARISON: 12/01/2018 FINDINGS: LUNGS/PLEURA: The lungs are clear. No pleural effusions or pneumothorax. No pulmonary edema. CARDIAC/MEDIASTINUM: The cardiac silhouette is within normal limits. UPPER ABDOMEN: No significant abnormality. BONES: No acute abnormality. LINES/TUBES/OTHER: N/A IMPRESSION: No evidence of acute cardiopulmonary disease.
--- NOTE | 2024-11-12 14:41 | RAD REPORT ---
EXAMINATION: US LOWER EXTREMITY VENOUS DOPPLER BILATERAL CLINICAL INDICATION: Female, 49 years old.Pain;Swelling TECHNIQUE: Complete bilateral duplex sonography of the lower extremity veins was performed. The exami nation included compression for vein patency, color Doppler imaging and flow augmentation in response to distal compression of the distal external iliac, common femoral, femoral, popliteal, gorge js, tibial and great saphenous veins. [id number]. COMPARISON: 10/12/2016 FINDINGS: Duplex sonography imaging demonstrates all deep examined to be fully compressible with spontaneous, p hasic and augmented flow bilaterally. There is a superficial vein at the popliteal fossa on the left IMPRESSION: No evidence of deep venous thrombosis seen in either lower extremity. Thrombosed superficial vein noted at the medial left popliteal fossa.
[2024-11-12 16:09] LABS: Absolute Basophils 0.1 K/uL (0-0.5); Absolute Eosinophils 0.3 K/uL (0-0.5); Absolute Lymphocytes (CBC) 2.9 K/uL (0.7-4.9); Absolute Neutrophil 6.1 K/uL (1.8-8.0); Basophils % 0.8 % (0-1.3); Eosinophils % 3.1 % (0-4.4); Hematocrit 40.9 % (36.0-45.0); Hemoglobin 14.1 g/dL (12.0-15.0); Lymphocytes % 27.9 % (15.3-44.8); MCH 30.8 pg (27.0-35.0); MCHC 34.5 g/dL (32.0-36.0); MCV 89.3 fL (80-100); MPV 7.6 fL (7.6-11.3); Monocytes % 9.3 % (3.3-12.3); Neutrophils % 58.9 % (41.7-73.7); Nucleated Red Blood Cells % 0.1 % (0-0); Platelets 245 thou/uL (152-406); RBC Red Blood Cell Count 4.58 M/uL (3.86-4.86); Red Cell Distribution Width 14.2 % (12.1-15.2)
[2024-11-12] MEDS ORDERED: AMPICILLIN/SULBACTAM 3GM/VIAL ONE (16:10)
[2024-11-12] MEDS ORDERED: ONDANSETRON 4 MG/2 ML VIAL ONE (16:10)
[2024-11-12] MEDS ORDERED: NA CHLORIDE 0.9% 1,000 ML ONE (16:11)
[2024-11-12] MEDS ORDERED: ENOXAPARIN 40 MG/0.4 ML SQ ONE (16:11)
[2024-11-12] MEDS ORDERED: FENTANYL CITR 100 MCG/2 ML ONE (16:11)
[2024-11-12] MEDS ORDERED: NA CHLORIDE 0.9% 100 ML ONE (16:11)
--- NOTE | 2024-11-12 16:19 | ER ---
Nurse's Notes [facility] Name: Darshana Haddad Age: 49 yrs Sex: Female : 1975 Arrival Date: 11/12/2024 Time: 12:18 Bed 18 Private MD: Diagnosis: Cellulitis and acute lymphangitis of other parts of limb-LEFT LOWER EXTREMITY;Phlebitis and thrombophlebitis of superficial vessels of left lower extremity;Obesity, unspecified;Varicose veins of left lower extremities with pain Presentation: 11/12 13:01 Chief complaint: Patient states: Diagnosed with a superficial blood clot to [facility] 1.5 ss weeks ago. Pt reports her pain, redness and swelling is migrating above her knee and is concerned the blood clot may be growing. Coronavirus screen: Client denies travel out of the [place] in the last 14 days. Ebola Screen: Patient denies exposure to infectious person. Patient denies travel to an Ebola-affected area in the 21 days before illness onset. Initial Sepsis Screen: Does the patient meet any 2 criteria? No. Patient's initial sepsis screen is negative. Does the patient have a suspected source of infection? No. Patient's initial sepsis screen is negative. Risk Assessment: Do you want to hurt yourself or someone else? Patient reports no desire to harm self or others. Onset of symptoms was November 01, 2024. 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 - Infectious Disease History:: Denies. - Social history:: Smoking status: Patient reports the use of cigarette tobacco products, smokes one pack cigarettes per day. - Family history:: not pertinent. Screenin:46 [facility] ED Fall Risk Assessment (Adult) History of falling in the last 3 months, ss including since admission No falls in past 3 months (0 pts) Confusion or Disorientation No (0 pts) Intoxicated or Sedated No (0 pts) Impaired Gait No (0 pts) Mobility Assist Device Used No (0 pt) Altered Elimination No (0 pt) Score/Fall Risk Level 0 - 2 = Low Risk Maintained a safe environment, Hourly rounding (assess needs \T\ fall precautionary measures) done. Abuse screen: Denies threats or abuse. Nutritional screening: No deficits noted. Tuberculosis screening: No symptoms or risk factors identified. Assessment: 15:55 General: Appears uncomfortable, Behavior is calm, cooperative, appropriate for age. ss Pain: Complains of pain in left leg Quality of pain is described as aching. Derm: Reports redness, warmth, pain to LLE. Musculoskeletal: Reports pain in left leg. 16:40 Reassessment: No changes from previously documented assessment. Patient and/or family ss updated on plan of care and expected duration. Pain level reassessed. 17:05 Reassessment: No changes from previously documented assessment. Patient and/or family ss updated on plan of care and expected duration. Pain level reassessed. Patient is alert, oriented x 3, equal unlabored respirations, skin warm/dry/pink. 17:45 Reassessment: No changes from previously documented assessment. Patient and/or family ss updated on plan of care and expected duration. Pain level reassessed. Patient is alert, oriented x 3, equal unlabored respirations, skin warm/dry/pink. Vital Signs: 13:01 BP 116 / 62; Pulse 82; Resp 17; Temp 98.5(O); Pulse Ox 100% on R/A; Weight 145.15 kg; ss Height 5 ft. 8 in. ; Pain 8/10; 16:25 BP 121 / 76; Pulse 80; Resp 17; Temp 98.3; Pulse Ox 98% ; Pain 7/10; am7 17:15 BP 133 / 75; Pulse 78; Resp 17; Pulse Ox 97% ; ll1 18:40 BP 124 / 82; Pulse 74; Resp 18; Pulse Ox 98% on R/A; ll1 13:01 Body Mass Index 48.66 (145.15 kg, 172.72 cm) ss 13:01 Pain Scale: Adult ss 16:25 Pain Scale: Adult am7 ED Course: 12:21 Patient arrived in ED. im 12:59 Carlos Parkinson MD is Attending Physician. salvador 13:04 Triage completed. ss 13:04 Arm band placed on left wrist. ss 13:53 US Extremity Venous W Compression Chintan In Process Unspecified. EDMS 14:15 XRAY Chest (1 view) In Process Unspecified. EDMS 15:03 Radiology exam delayed due to lab results not completed at this time. (BUN/Creatinine) jc4 IV insertion attempt and/or patient not having appropriate IV at this time. 15:27 Radiology exam delayed due to lab results not completed at this time. IV insertion nj attempt and/or patient not having appropriate IV at this time. 16:00 Initial lab(s) drawn, by me, sent to lab. Inserted saline lock: 22 gauge in right hand, ss using aseptic technique. Blood collected. Flushed with 10 mL NS. 16:17 Hemant Estrada MD is Hospitalizing Provider. salvador 16:25 Warm blanket given. am7 16:26 EKG done, by ED staff, reviewed by Carlos Parkinson MD. am7 16:30 First set of blood cultures drawn. ss 17:03 Blood Culture Adult (2) Sent. ss 17:15 Vero Fountain, EULOGIO is Primary Nurse. ll1 17:46 Patient has correct armband on for positive identification. Provided Education on: ER ss procedures and process. 18:41 No provider procedures requiring assistance completed. Patient admitted, IV remains in ll1 place. Administered Medications: 16:40 Drug: NS 0.9% IV 1000 ml IV at 1000 ml once; to be given as a bolus over 60 minutes ll1 Route: IV; Rate: 1000 ml; Site: right hand; 17:44 Follow up: Response: No adverse reaction; IV Status: Completed infusion; IV Intake: ss 1000ml 16:40 Drug: Lovenox Sub-Q 40 mg Sub-Q once Route: Sub-Q; Site: right lower abdomen; ll1 17:44 Follow up: Response: No adverse reaction 16:40 Drug: fentaNYL (PF) IVP 50 mcg IVP once {Note: pain 7/10 RASS 0.} Route: IVP; Site: ll1 right hand; 17:45 Follow up: Response: No adverse reaction; Pain is decreased; RASS: Alert and Calm (0) 16:40 Drug: Ondansetron IVP 4 mg IVP once; over 2 minutes Route: IVP; Site: right antecubital;ll1 17:44 Follow up: Response: No adverse reaction 17:03 Drug: Ampicillin-Sulbactam Sodium IVPB 3 grams IVPB once over 30 mins; (mix in 100 mL ss NS) Route: IVPB; Infused Over: 30 mins; Site: right antecubital; 17:45 Follow up: Response: No adverse reaction; IV Status: Completed infusion; IV Intake: ss 100ml 17:03 Drug: Famotidine IVP 20 mg IVP once; dilute with 10 mL 0.9% NaCl; give over 2 minutes ss Route: IVP; Site: right antecubital; 17:45 Follow up: Response: No adverse reaction ss 18:38 Not Given (went upstairs before receivingg): ns 0.9% 1000 ml IV at 1000 ml once; to be ll1 given as a bolus over 60 minutes Medication: 17:46 VIS not applicable for this client. ss Intake: 17:44 IV: 1000ml; Total: 1000ml. ss 17:45 IV: 100ml; Total: 1100ml. ss Outcome: 16:19 Decision to Hospitalize by Provider. [facility] 18:41 Admitted to Med/surg accompanied by tech, via wheelchair, room 222, with chart, Report ll1 called to Report faxed to 18:41 Condition: stable 18:41 Instructed on the need for admit, 18:42 Patient left the ED. 1 Signatures: Dispatcher [employer] EDCarlos Dozier MD MD cha Blanchard, Shelby, RN RN Mario Montenegro Lynsay, RN RN ll1 Dulce Woowdard Justin jc4 Janeth Winter am7
--- NOTE | 2024-11-12 16:19 | EDPHYS ---
Physician Documentation [facility] Name: Darshana Haddad Age: 49 yrs Sex: Female : 1975 Arrival Date: 11/12/2024 Time: 12:18 Bed 18 Private MD: NICOLÁS Physician Carlos Parkinson HPI: 11/12 16:07 This 49 yrs old Female presents to ER via Ambulatory with complaints of Leg salvador Swelling - Left. 16:07 The patient presents with decreased range of motion, pain, swelling, tenderness. The salvador complaints affect the medial aspect of left thigh, medial aspect of left knee and medial aspect of left calf. Context: The problem was sustained at home. Onset: The symptoms/episode began/occurred 8 day(s) ago. Modifying factors: The symptoms are alleviated by nothing. the symptoms are aggravated by nothing. Associated signs and symptoms: Pertinent positives: calf tenderness, warmth, of the left leg. INCREASING LEFT LE CELLULITIS, SINCE LAST NIGHT. Severity of symptoms: At their worst the symptoms were moderate in the emergency department the symptoms are unchanged. The patient has not experienced similar symptoms in the past. 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 - Infectious Disease History:: Denies. - Social history:: Smoking status: Patient reports the use of cigarette tobacco products, smokes one pack cigarettes per day. - Family history:: not pertinent. ROS: 16:07 Constitutional: Negative for fever, chills, and weight loss, Eyes: Negative for injury, salvador pain, redness, and discharge, ENT: Negative for injury, pain, and discharge, Neck: Negative for injury, pain, and swelling, Cardiovascular: Negative for chest pain, palpitations, and edema, Respiratory: Negative for shortness of breath, cough, wheezing, and pleuritic chest pain, Abdomen/GI: Negative for abdominal pain, nausea, vomiting, diarrhea, and constipation, Back: Negative for injury and pain, : Negative for injury, bleeding, discharge, and swelling, Skin: Negative for injury, rash, and discoloration, Neuro: Negative for headache, weakness, numbness, tingling, and seizure, Psych: Negative for depression, anxiety, suicide ideation, homicidal ideation, and hallucinations, Allergy/Immunology: Negative for hives, rash, and allergies, Endocrine: Negative for neck swelling, polydipsia, polyuria, polyphagia, and marked weight changes, Hematologic/Lymphatic: Negative for swollen nodes, abnormal bleeding, and unusual bruising, 16:07 MS/extremity: Positive for decreased range of motion, erythema, pain, swelling, tenderness, of the left leg, Exam: 16:09 Constitutional: This is a well developed, well nourished patient who is awake, alert, salvador and in no acute distress. Head/Face: Normocephalic, atraumatic. Eyes: Pupils equal round and reactive to light, extra-ocular motions intact. Lids and lashes normal. Conjunctiva and sclera are non-icteric and not injected. Cornea within normal limits. Periorbital areas with no swelling, redness, or edema. ENT: Nares patent. No nasal discharge, no septal abnormalities noted. Tympanic membranes are normal and external auditory canals are clear. Oropharynx with no redness, swelling, or masses, exudates, or evidence of obstruction, uvula midline. Mucous membranes moist. Neck: Trachea midline, no thyromegaly or masses palpated, and no cervical lymphadenopathy. Supple, full range of motion without nuchal rigidity, or vertebral point tenderness. No Meningismus. Chest/axilla: Normal chest wall appearance and motion. Nontender with no deformity. No lesions are appreciated. Cardiovascular: Regular rate and rhythm with a normal S1 and S2. No gallops, murmurs, or rubs. Normal PMI, no JVD. No pulse deficits. Respiratory: Lungs have equal breath sounds bilaterally, clear to auscultation and percussion. No rales, rhonchi or wheezes noted. No increased work of breathing, no retractions or nasal flaring. Abdomen/GI: Soft, non-tender, with normal bowel sounds. No distension or tympany. No guarding or rebound. No evidence of tenderness throughout. Back: No spinal tenderness. No costovertebral tenderness. Full range of motion. Neuro: Awake and alert, GCS 15, oriented to person, place, time, and situation. Cranial nerves II-XII grossly intact. Motor strength 5/5 in all extremities. Sensory grossly intact. Cerebellar exam normal. Normal gait. Psych: Awake, alert, with orientation to person, place and time. Behavior, mood, and affect are within normal limits. 16:09 Musculoskeletal/extremity: Circulation is intact in all extremities. Sensation intact. Compartment Syndrome exam of affected extremity: is normal. Weight bearing: able to fully bear weight, DVT Exam: negative Homans' sign noted on exam, no appreciated bluish discoloration, pain, swelling, tenderness, erythema, increased warmth, 16:27 ECG was reviewed by the Attending Physician. [facility] Vital Signs: 13:01 BP 116 / 62; Pulse 82; Resp 17; Temp 98.5(O); Pulse Ox 100% on R/A; Weight 145.15 kg; ss Height 5 ft. 8 in. ; Pain 8/10; 16:25 BP 121 / 76; Pulse 80; Resp 17; Temp 98.3; Pulse Ox 98% ; Pain 7/10; am7 17:15 BP 133 / 75; Pulse 78; Resp 17; Pulse Ox 97% ; ll1 18:40 BP 124 / 82; Pulse 74; Resp 18; Pulse Ox 98% on R/A; ll1 13:01 Body Mass Index 48.66 (145.15 kg, 172.72 cm) ss 13:01 Pain Scale: Adult ss 16:25 Pain Scale: Adult am7 MDM: 12:59 Medical Screening Exam initiated [facility] 16:11 Differential diagnosis: contusion, tendonitis. Differential Diagnosis sepsis. Data [facility] reviewed: vital signs, nurses notes, lab test result(s), EKG, radiologic studies, doppler, plain films. Consideration of Admission/Observation Patient was admitted/placed on observation. Escalation of care including admission/observation considered. I considered the following discharge prescriptions or medication management in the emergency department Medications were administered in the Emergency Department. See MAR. Independent interpretation of the following test(s) in the Emergency Department Radiology Department Ultrasound: My interpretation is VENOUS DOPPLER. Test considered but Not performed: CT: CT CHEST RO PE, NO DVT. Historians other than the Patient: PT WELL INFORMED. Care significantly affected by the following chronic conditions: Obesity, VARICOSE VEINS. Counseling: I had a detailed discussion with the patient and/or guardian regarding the historical points, exam findings, and any diagnostic results supporting the discharge/admit diagnosis, lab results, radiology results, the need for further work-up and treatment in the hospital. 11/12 13:00 Order name: Basic Metabolic Panel; Complete Time: 17:01 11/12 13:00 Order name: CBC with Diff; Complete Time: 16:29 11/12 13:00 Order name: LFT's; Complete Time: 17:01 11/12 13:00 Order name: Magnesium; Complete Time: 17:11/12 13:00 Order name: NT PRO-BNP; Complete Time: 17:11/12 13:00 Order name: PT-INR 11/12 13:00 Order name: Troponin HS; Complete Time: 17:01 11/12 13:00 Order name: Urinalysis w/ reflexes 11/12 13:00 Order name: PREGU 11/12 16:06 Order name: Blood Culture Adult (2) 11/12 13:00 Order name: XRAY Chest (1 view); Complete Time: 15:36 [facility] 11/12 13:00 Order name: US Extremity Venous W Compression Chintan; Complete Time: 15:36 11/12 13:00 Order name: Cardiac monitoring; Complete Time: 16:25 11/12 13:00 Order name: EKG - Nurse/Tech; Complete Time: 16:25 salvador 11/12 13:00 Order name: IV Saline Lock; Complete Time: 15:48 [facility] 11/12 13:00 Order name: Labs collected and sent; Complete Time: 15:49 [facility] 11/12 13:00 Order name: O2 Per Protocol; Complete Time: 15:34 [facility] 11/12 13:00 Order name: O2 Sat Monitoring; Complete Time: 15:34 [facility] EC:27 Rate is 79 beats/min. Rhythm is regular. QRS [place] is Normal. [place] interval is normal. QRS salvador interval is normal. QT interval is normal. No Q waves. T waves are Normal. No ST changes noted. Clinical impression: NSR w/ Non-specific ST/T Changes and No evidence of ischemia. Interpreted by me. Reviewed by me. Administered Medications: 16:40 Drug: NS 0.9% IV 1000 ml IV at 1000 ml once; to be given as a bolus over 60 minutes ll1 Route: IV; Rate: 1000 ml; Site: right hand; 17:44 Follow up: Response: No adverse reaction; IV Status: Completed infusion; IV Intake: ss 1000ml 16:40 Drug: Lovenox Sub-Q 40 mg Sub-Q once Route: Sub-Q; Site: right lower abdomen; ll1 17:44 Follow up: Response: No adverse reaction ss 16:40 Drug: fentaNYL (PF) IVP 50 mcg IVP once {Note: pain 7/10 RASS 0.} Route: IVP; Site: ll1 right hand; 17:45 Follow up: Response: No adverse reaction; Pain is decreased; RASS: Alert and Calm (0) ss 16:40 Drug: Ondansetron IVP 4 mg IVP once; over 2 minutes Route: IVP; Site: right antecubital;ll1 17:44 Follow up: Response: No adverse reaction ss 17:03 Drug: Ampicillin-Sulbactam Sodium IVPB 3 grams IVPB once over 30 mins; (mix in 100 mL ss NS) Route: IVPB; Infused Over: 30 mins; Site: right antecubital; 17:45 Follow up: Response: No adverse reaction; IV Status: Completed infusion; IV Intake: ss 100ml 17:03 Drug: Famotidine IVP 20 mg IVP once; dilute with 10 mL 0.9% NaCl; give over 2 minutes ss Route: IVP; Site: right antecubital; 17:45 Follow up: Response: No adverse reaction ss 18:38 Not Given (went upstairs before receivingg): ns 0.9% 1000 ml IV at 1000 ml once; to be ll1 given as a bolus over 60 minutes Disposition Summary: 11/12/24 16:19 Hospitalization Ordered Notes: Hospitalization Status: Inpatient Admission salvador Provider: Hemant Estrada cha Location: Telemetry/MedSurg (Inpatient) salvador Condition: Stable salvador Problem: new salvador Symptoms: have improved salvador Bed/Room Type: Standard salvador Room Assignment: 222(11/12/24 17:35) bd Diagnosis - Cellulitis and acute lymphangitis of other parts of limb - LEFT LOWER EXTREMITY salvador - Phlebitis and thrombophlebitis of superficial vessels of left lower extremity salvador - Obesity, unspecified salvador - Varicose veins of left lower extremities with pain salvador Forms: - Medication Reconciliation Form salvador - SBAR form salvador - Leadership Thank You Letter salvador Signatures: Dispatcher [employer] Melania Montilla Corey, MD MD cha Blanchard, Shelby, RN RN ss Vero Fountain, EULOGIO RN ll1 Corrections: (The following items were deleted from the chart) 13: 13:00 BASIC METABOLIC PANEL+C.LAB.BRZ ordered. EDMS EDMS 13: 13:00 CBC+H.LAB.BRZ ordered. EDMS EDMS 13: 13:00 HEPATIC FUNCTION+C.LAB.BRZ ordered. EDMS EDMS 13: 13:00 MAGNESIUM+C.LAB.BRZ ordered. EDMS EDMS 13: 13:00 PROBNP+C.LAB.BRZ ordered. EDMS EDMS 13: 13:00 PROTIME (+INR)+COAG.LAB.BRZ ordered. EDMS EDMS 13: 13:00 Troponin High Sensitivity+C.LAB.BRZ ordered. EDMS EDMS 13: 13:00 Urinalysis+U.LAB.BRZ ordered. EDMS EDMS 13: 13:00 Test, Urine+UC.LAB.BRZ ordered. EDMS EDMS 13: 13:01 Chest Single View+RAD.RAD.BRZ ordered. EDMS EDMS 13: 13:01 Extrem Venous W Compression Chintan+US.RAD.BRZ ordered. EDMS EDMS 16:17 14:26 Chest For PE Angio+CT.RAD.BRZ ordered. EDMS EDMS 17:35 16:19 salvador bd
[2024-11-12 16:39] LABS: ALT/SGPT 32 U/L (13-56); Albumin 3.1 g/dL (3.4-5.0); Albumin/Globulin Ratio 0.8 (1.1-1.8); Alkaline Phosphatase 74 U/L (45-117); Anion Gap 7.3 mEq/L (5.0-15.0); BUN Blood Urea Nitrogen 11 mg/dL (7-18); Bicarbonate 27 mEq/L (21-32); Bilirubin Total 0.7 mg/dL (0.2-1.0); Glomerular Filtration Rate 87 ml/min (=/>90); Glucose Level 91 mg/dL (74-106); NT PRO-BNP 41 pg/mL (<125); Protein, Total 7.1 g/dL (6.4-8.2); Sodium Level 134 mEq/L (136-145); Troponin High Sensitivity 3.5 pg/mL (<58.9)
[2024-11-12 16:44] LABS: AST/SGOT 31 U/L (15-37); Bilirubin Direct < 0.2 mg/dL (0-0.2); Bilirubin Indirect, Calculated 0.5 mg/dL (0.2-0.8); Magnesium 1.8 mg/dL (1.6-2.4); Potassium 4.3 mEq/L (3.5-5.1)
[2024-11-12] MEDS ORDERED: FAMOTIDINE 20 MG/2 ML VIAL IV ONE (16:46)
[2024-11-12] MEDS ORDERED: ONDANSETRON 4 MG/2 ML VIAL IV PRN (17:29)
--- NOTE | 2024-11-12 19:05 | P.HP ---
Certification for Inpatient Patient admitted to: Observation With expected LOS: <2 Midnights Practitioner: I am a practitioner with admitting privileges, knowledge of patient current condition, hospital course, and medical plan of care. Services: Services provided to patient in accordance with Admission requirements found in Title 42 Section 412.3 of the Code of Federal Regulations Patient History Date of Service: 11/12/24 Reason for admission: LLE cellulitis History of Present Illness: Patient is a 49-year-old female with a past medical history of morbid obesity, hypertension and hyperlipidemia. She is presents to the ER on recommendation by her PCP due to concern for left lower extremity DVT. Patient is a has left lower extremity swelling, redness and pain. She was found to have superficial thrombosis around the left popliteal vein. She is being admitted for cellulitis. She is not septic. Allergies No Known Allergies Allergy (Unverified 10/12/16 18:06) Physical Examination - Physical Exam General: Alert, In no apparent distress, Obese HEENT: Atraumatic, Normocephalic Cardiovascular: Regular rate/rhythm, Normal S1 S2, Other (Left lower extremity edema) Neurological: Normal speech - Studies Laboratory Data (last 24 hrs) 11/12/24 11/12/24 15:47 15:47 WBC 10.40 Hgb 14.1 Hct 40.9 Plt Count 245 Sodium 134 L Potassium 4.3 BUN 11 Creatinine 0.83 Glucose 91 Magnesium 1.8 Total Bilirubin 0.7 AST 31 ALT 32 Alkaline Phosphatase 74 Assessment and Plan - Problems (Diagnosis) (1) Left leg cellulitis Current Visit: Yes Status: Acute (2) Morbid obesity Current Visit: Yes Status: Acute (3) Hypertension Current Visit: Yes Status: Acute - Plan Assessment This is a 49-year-old female morbid obesity, hypertension and hyperlipidemia. She is being admitted for left lower extremity cellulitis. She also has a superficial thrombus on the left popliteal vein. Left lower EXTR cellulitis Morbid obesity Hypertension Hyperlipidemia Plan: Will admit under observation 24 hours of antibiotics. Will treat with IV clindamycin Patient is not septic Multimodal pain regimen Resume rest of home medication upon reconciliation Patient can be discharged tomorrow if clinically stable. - Advance Directives Does patient have a Living Will: No Does patient have a Durable POA for Healthcare: No
[2024-11-12] MEDS: MORPHINE 2 MG/ML SYR IV PRN (20:12)
[2024-11-12] MEDS: [UNRECOGNIZED DRUG - OTHER] IV SCH (20:13)
[2024-11-12] MEDS: CLINDAMYCIN IV SCH (20:13)
[2024-11-13] MEDS ORDERED: CLINDAMYCIN PHOSPHATE 900 MG in NA CHLORIDE 0.9% 50 ML IV SCH (12:00)
[2024-11-13 12:16] LABS: Specific Gravity 1.016 (1.005-1.030); Sqamous Epithelial <5 /HPF (None Seen); Urine Bacteria None Seen /HPF (<20); Urine Bilirubin NEGATIVE (Negative); Urine Blood 1+ (Negative); Urine Clarity Clear (Clear); Urine Color Light-Yellow (Yellow); Urine Culture Reflex Order NOT NEEDED; Urine Glucose NEGATIVE (Negative); Urine Ketones NEGATIVE (Negative); Urine Microscopic Reflex YN ORDER UMIC; Urine Mucus Slight /HPF (None Seen); Urine Nitrite NEGATIVE (Negative); Urine Protein NEGATIVE (Negative); Urine Urobilinogen Normal (Normal); Urine WBC <5 /HPF (<5); Urine pH 5.5 (5.0-7.0)
[2024-11-13 12:19] LABS: Specific Gravity 1.016 (1.005-1.030)
--- NOTE | 2024-11-13 12:19 | P.PN ---
Date of Service: 11/13/24 Subjective: Seen resting in bed. Complains of pain traveling up the left thigh. We discussed compression stockings. She denies fevers and chills. She rates the pain at a 7 out of 10. She states the IV morphine only works for a short amount of time. We discussed adding on an oral medication Review of systems As per HPI 10 point review of systems otherwise negative Physical Examination - Physical Exam General: Alert, In no apparent distress, Obese HEENT: Atraumatic, Normocephalic Cardiovascular: Regular rate/rhythm, Normal S1 S2, Other (Left lower extremity edema) Neurological: Normal speech - Studies Laboratory Data (last 24 hrs) 11/12/24 11/12/24 15:47 15:47 WBC 10.40 Hgb 14.1 Hct 40.9 Plt Count 245 Sodium 134 L Potassium 4.3 BUN 11 Creatinine 0.83 Glucose 91 Magnesium 1.8 Total Bilirubin 0.7 AST 31 ALT 32 Alkaline Phosphatase 74 Assessment and Plan - Problems (Diagnosis) (1) Left leg cellulitis Current Visit: Yes Status: Acute (2) Morbid obesity Current Visit: Yes Status: Acute (3) Hypertension Current Visit: Yes Status: Acute - Plan Assessment This is a 49-year-old female morbid obesity, hypertension and hyperlipidemia. She is being admitted for left lower extremity cellulitis. She also has a superficial thrombus on the left popliteal vein. Left lower EXTR cellulitis Left leg superficial thrombophlebitis Morbid obesity Hypertension Hyperlipidemia Prediabetes Plan: Continue IV clindamycin Procalcitonin and CRP pending Add [place] 11/21/2024 every 4 as needed for pain control Home medications reconciled add compression stocking for left leg pain Low-carb diet DVT prophylaxis with SCDs - Advance Directives Does patient have a Living Will: No Does patient have a Durable POA for Healthcare: No
[2024-11-13] MEDS: HYDROCODONE/APAP 5/325 MG TAB PO PRN (12:48)
[2024-11-13] MEDS: CLINDAMYCIN 900MG/D5W 900 MG/50 ML IVPB IV SCH (12:49)
[2024-11-13 17:54] VITALS: BMI 54.8
[2024-11-14] MEDS: VANCOMYCIN 2 GM in NA CHLORIDE 0.9% 500 ML IVPB SCH (12:57)
--- NOTE | 2024-11-14 15:13 | P.PN ---
Date of Service: 11/14/24 Subjective Reports a blood clot was found at Dr. Gonzalez's office, venous US BLE without blood clot found at our facility Left lower extremity with cellulitis, reports no other episode Some improvement to erythema ROS 10 point ROS as noted above, otherwise negative General: AAOx3, NAD HEENT: MMM, nare normal Head/Neck: Normocephalic, atraumatic, neck supple Respiratory: symmetrical chest expansion, lungs clear on ausultation, on RA Cardiac: RRR, no murmurs or gallops noted Extremities: LLE edema and erythema Abdominal: soft, NT/ND Skin: warm pink and dry Neurological: clear speech, appropriate Vitals Reviewed Problem list Left lower EXTR cellulitis Left leg superficial thrombophlebitis Diarrhea Morbid obesity2/2 increased calorie intake Hypertension Hyperlipidemia Prediabetes Assessment and Plan Left lower EXTR cellulitis Left leg superficial thrombophlebitis Diarrhea Stopped IV clindamycin d/t diarrhea, started vancomycin Procalcitonin <0.05 and CRP pending [place] 11/21/2024 every 4 as needed for pain control add compression stocking for left leg pain Prediabetes Low-carb diet A1C in the AM restart home glucaphage Morbid obesity 2/2 increased calorie intake Hypertension Hyperlipidemia Continue Home medications DVT prophylaxis with SCDs Full code LOS 2 days Time Spent Managing Pts Care (In Minutes): 35 <Roxanna Lizama - Last Filed: 11/14/24 14:27> I have personally reviewed and discussed the patient's history, physical exam findings, assessment, and plan as documented by Eamon Lizama NP. I confirmed the accuracy of the information and agree with the management of the plan as outlined Alpesh Hayward <Alpesh Hayward - Last Filed: 11/14/24 15:44>
[2024-11-15 01:53] VITALS: O2SAT 96
[2024-11-15] MEDS ORDERED: ATORVASTATIN 10 MG TAB PO SCH (09:00)
[2024-11-15] MEDS ORDERED: HOME MED 1 EA UNK (Spironolactone [Spironolactone] 50 MG Tablet) PO SCH (09:00)
[2024-11-15 09:26] LABS: Absolute Eosinophils 0.2 K/uL (0-0.5); Absolute Lymphocytes (CBC) 1.1 K/uL (0.7-4.9); Absolute Monocytes 0.4 K/uL (0.1-1.3); Absolute Neutrophil 2.6 K/uL (1.8-8.0); Basophils % 0.5 % (0-1.3); Eosinophils % 4.1 % (0-4.4); Hematocrit 40.1 % (36.0-45.0); Hemoglobin 13.7 g/dL (12.0-15.0); Lymphocytes % 24.8 % (15.3-44.8); MCH 30.9 pg (27.0-35.0); MCHC 34.1 g/dL (32.0-36.0); MCV 90.7 fL (80-100); MPV 7.6 fL (7.6-11.3); Monocytes % 9.9 % (3.3-12.3); Neutrophils % 60.7 % (41.7-73.7); Platelets 277 thou/uL (152-406); RBC Red Blood Cell Count 4.42 M/uL (3.86-4.86); Red Cell Distribution Width 14.1 % (12.1-15.2)
--- NOTE | 2024-11-15 09:26 | P.PN ---
Subjective Date of Service: 11/15/24 Chief Complaint: LLE cellulitis Reports a blood clot was found at Dr. Gonzalez's office, venous US BLE without blood clot found at our facility Left lower extremity with cellulitis, reports no other episode Physical Examination - Vital Signs Temperature: 97.0 F Blood Pressure: 118/69 Pulse: 86 Respirations: 14 Pulse Ox (%): 96 - Physical Exam General: Alert, In no apparent distress, Oriented x3 HEENT: Atraumatic, Normocephalic Respiratory: Clear to auscultation bilaterally, Normal air movement Cardiovascular: Normal pulses, Regular rate/rhythm, Edema Capillary refill: <2 Seconds Gastrointestinal: Normal bowel sounds, Soft and benign Integumentary: Other (Bilateral lower extremity edema, erythema,) Neurological: Normal speech, Normal strength at 5/5 x4 extr Assessment And Plan - Plan Problem list Left lower EXTR cellulitis Left leg superficial thrombophlebitis Diarrhea Morbid obesity2/2 increased calorie intake Hypertension Hyperlipidemia Prediabetes Assessment and Plan Left lower EXTR cellulitis Left leg superficial thrombophlebitis Diarrhea Stopped IV clindamycin d/t diarrhea, started vancomycin Procalcitonin <0.05 and CRP pending [place] 11/21/2024 every 4 as needed for pain control add compression stocking for left leg pain Prediabetes Low-carb diet A1C in the AM restart home glucaphage Morbid obesity 2/2 increased calorie intake Hypertension Hyperlipidemia Continue Home medications DVT prophylaxis with SCDs Full code LOS 2 days Discharge Plan: Home - Code Status/Comfort Care Code Status: Full Code Critical Care: No Time Spent Managing PTS Care (In Minutes): 35
[2024-11-15 09:41] LABS: Anion Gap 9.2 mEq/L (5.0-15.0); C-Reactive Protein 67.5 mg/L (<3.00); Magnesium 1.9 mg/dL (1.6-2.4); Phosphorus 2.2 mg/dL (2.5-4.9); Potassium 3.2 mEq/L (3.5-5.1)
[2024-11-15] MEDS: ATORVASTATIN 10 MG TAB PO SCH (09:43)
[2024-11-15] MEDS: METFORMIN HCL 500 MG TAB PO SCH (09:43)
[2024-11-15] MEDS: SPIRONOLACTONE 25 MG TABLET PO SCH (09:43)
--- NOTE | 2024-11-15 11:22 | P.DS ---
Admission Date: 11/12/24 Discharge Date: 11/15/24 Reason for Admission: LLE cellulitis Brief History of Present Illness: Patient is a 49-year-old female with a past medical history of morbid obesity, hypertension and hyperlipidemia. She is presents to the ER on recommendation by her PCP due to concern for left lower extremity DVT. Patient is a has left lower extremity swelling, redness and pain. She was found to have superficial thrombosis around the left popliteal vein. She is being admitted for cellulitis. She is not septic. Physical Exam General: Alert, In no apparent distress, Oriented x3 HEENT: Atraumatic, Normocephalic Respiratory: Clear to auscultation bilaterally, Normal air movement Cardiovascular: Normal pulses, Regular rate/rhythm, Edema Capillary refill: <2 Seconds Gastrointestinal: Normal bowel sounds, Soft and benign Integumentary: Other (Bilateral lower extremity edema, erythema,) Neurological: Normal speech, Normal strength at 5/5 x4 extr Hospital Course: Patient is a 49-year-old female with a past medical history of morbid obesity, hypertension and hyperlipidemia. She is presents to the ER on recommendation by her PCP due to concern for left lower extremity DVT. Patient is a has left lower extremity swelling, redness and pain. She was found to have superficial thrombosis around the left popliteal vein. She is being admitted for cellulitis. She is not septic.Was noted to have left lower extremity cellulitis, left lower extremity thrombophlebitis, diarrhea from antibiotics use, morbid obesity,. Tolerating diet, stable to discharge home, follow-up with PCP after discharge Assessment Left lower extremity cellulitis clindamycin changed to vancomycin due to diarrhea [place] for pain Left lower extremity thrombophlebitis-recommend compression stockings,warm Diarrhea secondary to antibiotic use clindamycin discontinued, changed to vancomycin while in patient Hypertension Hyperlipidemia resume home Lipitor Prediabetes recommend low-fat low carbohydrate diet, resume home Glucophage Venous Doppler No evidence of deep venous thrombosis seen in either lower extremity. Thrombosed superficial vein noted at the medial left popliteal fossa. INSTRUCTIONS: Physician Discharge Instructions: -Follow-up with PCP in 1 to 2 weeks -Please call if any questions regarding hospital stay -Please call nursing station at [phone] if any nursing or medication questions -Return to the emergency room if symptoms worsen Diet: ADA, low sodium Activity: Fall precautions <Gaviota Davis - Last Filed: 11/15/24 11:07> Admission Date: 11/12/24 Discharge Date: 11/15/24 <Alpesh Hayward - Last Filed: 11/15/24 16:51> Disposition: ROUTINE DISCHARGE Discharge Condition: GOOD Vital Signs/Physical Exam: Temp Pulse Resp BP Pulse Ox 97.0 F 86 14 118/69 96 11/15/24 09:26 11/15/24 09:43 11/15/24 09:26 11/15/24 09:43 11/15/24 09:26 Laboratory Data at Discharge: WBC 4.30 thou/uL (4.3-10.9) 11/15/24 09:05 Hgb 13.7 g/dL (12.0-15.0) 11/15/24 09:05 Hct 40.1 % (36.0-45.0) 11/15/24 09:05 Plt Count 277 thou/uL (152-406) 11/15/24 09:05 PT Cancelled 11/12/24 13:00 INR Cancelled 11/12/24 13:00 Sodium 136 mEq/L (136-145) 11/15/24 09:05 Potassium 3.2 mEq/L (3.5-5.1) L 11/15/24 09:05 BUN 10 mg/dL (7-18) 11/15/24 09:05 Creatinine 0.64 mg/dL (0.55-1.02) 11/15/24 09:05 Glucose 127 mg/dL (74-106) H 11/15/24 09:05 Phosphorus 2.2 mg/dL (2.5-4.9) L 11/15/24 09:05 Magnesium 1.9 mg/dL (1.6-2.4) 11/15/24 09:05 Total Bilirubin 0.7 mg/dL (0.2-1.0) 11/12/24 15:47 AST 31 U/L (15-37) 11/12/24 15:47 ALT 32 U/L (13-56) 11/12/24 15:47 Alkaline Phosphatase 74 U/L (45-117) 11/12/24 15:47 <Gaviota Davis - Last Filed: 11/15/24 11:07> Vital Signs/Physical Exam: Temp Pulse Resp BP Pulse Ox 98.0 F 86 16 124/59 L 93 11/15/24 12:00 11/15/24 12:00 11/15/24 12:00 11/15/24 12:00 11/15/24 12:00 Laboratory Data at Discharge: WBC 4.30 thou/uL (4.3-10.9) 11/15/24 09:05 Hgb 13.7 g/dL (12.0-15.0) 11/15/24 09:05 Hct 40.1 % (36.0-45.0) 11/15/24 09:05 Plt Count 277 thou/uL (152-406) 11/15/24 09:05 PT Cancelled 11/12/24 13:00 INR Cancelled 11/12/24 13:00 Sodium 136 mEq/L (136-145) 11/15/24 09:05 Potassium 3.2 mEq/L (3.5-5.1) L 11/15/24 09:05 BUN 10 mg/dL (7-18) 11/15/24 09:05 Creatinine 0.64 mg/dL (0.55-1.02) 11/15/24 09:05 Glucose 127 mg/dL (74-106) H 11/15/24 09:05 Phosphorus 2.2 mg/dL (2.5-4.9) L 11/15/24 09:05 Magnesium 1.9 mg/dL (1.6-2.4) 11/15/24 09:05 Total Bilirubin 0.7 mg/dL (0.2-1.0) 11/12/24 15:47 AST 31 U/L (15-37) 11/12/24 15:47 ALT 32 U/L (13-56) 11/12/24 15:47 Alkaline Phosphatase 74 U/L (45-117) 11/12/24 15:47 <Alpesh Hayward - Last Filed: 11/15/24 16:51> <Gaviota Davis - Last Filed: 11/15/24 11:07> Physician Review: Patient Assessed, Agree with Above Assessment and Plan <Alpesh Hayward - Last Filed: 11/15/24 16:51> Home Medications: Atorvastatin Calcium [Lipitor*] 10 mg PO DAILY 11/12/24 Metformin HCl [Glucophage*] 500 mg PO DAILY 11/12/24 Cefdinir [Omnicef] 300 mg PO BID 5 Days #10 tab 11/15/24 Codeine/APAP [Tylenol W/Codeine #3 tab] 1 tab PO Q6HP PRN 5 Days #15 tab 11/15/24 Hydrocodone 5/APAP 325 [[place] 5/325*] 1 tab PO Q4H PRN tab 11/15/24 Spironolactone [Aldactone*] 50 mg PO DAILY tab 11/15/24 New Medications: Codeine/APAP [Tylenol W/Codeine #3 tab] 1 tab PO Q6HP PRN 5 Days #15 tab PRN Reason: Pain Cefdinir [Omnicef] 300 mg PO BID 5 Days #10 tab Physician Discharge Instructions: Patient is a 49-year-old female with a past medical history of morbid obesity, hypertension and hyperlipidemia. She is presents to the ER on recommendation by her PCP due to concern for left lower extremity DVT. Patient is a has left lower extremity swelling, redness and pain. She was found to have superficial thrombosis around the left popliteal vein. She is being admitted for cellulitis. She is not septic.Was noted to have left lower extremity cellulitis, left lower extremity thrombophlebitis, diarrhea from antibiotics use, morbid obesity,. Tolerating diet, stable to discharge home, follow-up with PCP after discharge Discharge home on Omnicef 1 p.o. twice daily for 7 days Take [id number] probiotic daily for 7 days or your yogurt while on antibiotic Follow-up with PCP in 1 week [place] take as prescribed no no driving heavy equipment while on narcotic Assessment Left lower extremity cellulitis clindamycin changed to vancomycin due to diarrhea [place] for pain Left lower extremity thrombophlebitis-recommend compression stockings,warm Diarrhea secondary to antibiotic use clindamycin discontinued, changed to vancomycin while in patient Hypertension Hyperlipidemia resume home Lipitor Prediabetes recommend low-fat low carbohydrate diet, resume home Glucophage Venous Doppler No evidence of deep venous thrombosis seen in either lower extremity. Thrombosed superficial vein noted at the medial left popliteal fossa. INSTRUCTIONS: Physician Discharge Instructions: -Follow-up with PCP in 1 to 2 weeks -Please call if any questions regarding hospital stay -Please call nursing station at [phone] if any nursing or medication questions -Return to the emergency room if symptoms worsen Diet: ADA, low sodium Activity: Fall precautions Followup: Aureliano Cervantes MD [Primary Care Provider] -
[2024-11-15] MEDS: NA CHLORIDE 0.9% 1,000 ML IV ONE (12:23)
[2024-11-15] MEDS: POTASSIUM 25 MEQ EFFERV TAB PO ONE (12:24)
[2024-11-15 12:26] VITALS: BP 124/59; TEMP 98
[2024-11-16 07:08] LABS: CDIFF INTERNAL NEG CONTROL White Background (WHITE BKGD); STOOL CONSISTENCY Liquid/Semi-Solid
[2024-11-16 07:09] LABS: C.diff Antigen/Toxin Ag neg : Tox neg (NEG : NEG)
--- NOTE | 2024-11-16 12:21 | EKG ---
Test Date: 2024-11-12 Test Time: 16:18:44 Area Development Manager: AM MEASUREMENT RESULTS: Intervals: Rate: 79 [place]: 136 QRSD: 96 QT: 418 QTc: 479 [place]: P: 37 [place]: 136 QRS: 12 T: 29 INTERPRETIVE STATEMENTS: Normal sinus rhythm Normal ECG Compared to ECG 12/01/2018 13:33:21 Sinus bradycardia no longer present Electronically Signed On 11-16-24 12:11:31 CDT by Harman Jeffrey
== END 2024-11-15 14:40 | disposition home or self-care (01) | DRG 603 ==
LOC: ER 12:18 → ERHOLD 17:29 → 2ND 17:46
PROVIDERS: ADMIT Internal Medicine; ATTEND Family Medicine
DX: L03.116 Cellulitis of left lower limb (principal); I82.432 Acute embolism and thrombosis of left popliteal vein; Z68.42 Body mass index [BMI] 45.0-49.9, adult; E66.01 Morbid (severe) obesity due to excess calories; E78.5 Hyperlipidemia, unspecified; F17.210 Nicotine dependence, cigarettes, uncomplicated; R73.03 Prediabetes; Z90.49 Acquired absence of other specified parts of digestive tract; Z90.710 Acquired absence of both cervix and uterus; Z79.84 Long term (current) use of oral hypoglycemic drugs; Z79.899 Other long term (current) drug therapy
CPT/HCPCS: 36415; 71045; 80048; 80076; 80202; 81001; 81025; 83036; 83735; 83880; 84100; 84145; 84484; 85025; 86140; 87040; 87177; 87209; 87324; 93005; 93970; 96372; 99285; J0295; J1650; J2270; J2405; J3010; J3370; J7030; J7040